=== PATIENT | female | born 1985 | race Caucasian/White ===

== ENCOUNTER 2017-10-20 17:30 | Emergency (ER) | payer MEDICAID ==
[2017-10-20] MEDS ORDERED: Ketorolac 60 MG/2 ML SDV IM ONE (18:17)
--- NOTE | 2017-10-20 18:17 | EDM.PDOC ---
ED HPI GENERAL MEDICAL PROBLEM - General Chief Complaint: ENT Problem Stated Complaint: MOUTH PAIN, POSSIBLE INFECTED TEETH Time Seen by Provider: 10/20/17 18:03 Source of Information: Reports: Patient, RN Notes Reviewed History Limitations: Reports: No Limitations - History of Present Illness INITIAL COMMENTS - FREE TEXT/NARRATIVE: 32-year-old female presents emergency department with the complaint of dental pain, she states she broke a tooth about 4 days ago pain has been increasing she has tenderness around her jaw she denies any fever she recently moved here from [place] but is a resident of [facility] - Related Data Allergies Allergy/AdvReac Type Severity Reaction Status Date / Time No Known Allergies Allergy Verified 10/20/17 18:02 Home Meds: Home Meds NK [No Known Home Meds] 10/20/17 [History] Past Medical History - Past Surgical History HEENT Surgical History: Reports: Oral Surgery Social & Family History - Tobacco Use Smoking Status *Q: Never Smoker ED ROS ENT - Review of Systems Review Of Systems: See Below Constitutional: Denies: Fever, Chills HEENT: Reports: Dental Pain Respiratory: Reports: No Symptoms ED EXAM, ENT - Physical Exam Exam: See Below Text/Narrative:: Mouth mucosa is moist and pink there is no erythema or exudate noted in soft palate tongue is midline uvula is midline molar #1 is broken she is tender to the touch Exam Limited By: No Limitations General Appearance: Alert, Mild Distress Head: Atraumatic, Normocephalic Neck: Normal Inspection, Supple, Non-Tender, Full Range of Motion Respiratory/Chest: No Respiratory Distress Course - Vital Signs Last Recorded V/S: Last Vital Signs Temp 98.9 F 10/20/17 18:06 Pulse 109 H 10/20/17 18:06 Resp 20 10/20/17 18:06 BP 152/106 H 10/20/17 18:06 Pulse Ox 98 10/20/17 18:06 Departure - Departure Time of Disposition: 18:17 Disposition: Home, Self-Care 01 Condition: Good Clinical Impression: Dental abscess, Pain, dental - Discharge Information Referrals: PCP,None [Primary Care Provider] - Additional Instructions: Take full course of antibiotics, use ibuprofen for baseline pain control, use hydrocodone for breakthrough pain, please report to the dental clinic October 22 at 8:15 in the morning - Assessment/Plan Plan: Assessment Acuity = acute Site and laterality = fractured tooth molar 1 Etiology = secondary to dental caries Manifestations = pain concern for development of dental abscess Location of injury = Home Lab values = none Plan Amoxicillin 500 mg by mouth 3 times a day 10 days, hydrocodone 5/325 one tab by mouth 3 times a day when necessary total #10 referral set up for dentistry on 10-22-17 at 8:15 in the morning This note was dictated using [email or web address] voice recognition software please call with any questions on syntax or grammar.
== END 2017-10-20 18:42 | disposition home or self-care (01) ==
LOC: JP.ED 17:30
DX: K04.7 Periapical abscess without sinus (principal); K03.81 Cracked tooth; K02.9 Dental caries, unspecified
CPT/HCPCS: 96372; 99283; J1885

== ENCOUNTER 2018-06-19 10:42 | Emergency (ER) | payer MEDICAID ==
--- NOTE | 2018-06-19 11:41 | EDM.PDOC ---
ED HPI GENERAL MEDICAL PROBLEM - General Chief Complaint: ENT Problem Stated Complaint: UPPER RT BROKEN TOOTH Time Seen by Provider: 06/19/18 11:25 Source of Information: Reports: Patient History Limitations: Reports: No Limitations - History of Present Illness INITIAL COMMENTS - FREE TEXT/NARRATIVE: 32-year-old with chronic dental caries, has increased pain on the right upper molar for the last 2 days since her tooth fractured. The dentist won't see her because of a past pill that she didn't pay, but she does have an appointment in [place] next week. No erythema or swelling, no fever. 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 Psychiatric History: Reports: ADHD, Anxiety - Past Surgical History HEENT Surgical History: Reports: Oral Surgery Social & Family History - Family History Family Medical History: Unobtainable - Tobacco Use Smoking Status *Q: Current Every Day Smoker Years of Tobacco use: 10 Packs/Tins Daily: 0.5 - Caffeine Use Caffeine Use: Reports: Coffee - Recreational Drug Use Recreational Drug Use: No ED ROS ENT - Review of Systems Review Of Systems: See Below Constitutional: Denies: Fever, Chills Respiratory: Denies: Shortness of Breath Cardiovascular: Denies: Chest Pain GI/Abdominal: Denies: Nausea, Vomiting Skin: Reports: No Symptoms ED EXAM, ENT - Physical Exam Exam: See Below Exam Limited By: No Limitations General Appearance: Alert, Anxious, Mild Distress Mouth/Throat: Other (She does have an area of missing tooth on the second molar of the right maxilla, also scattered dental caries elsewhere. No significant erythema or swelling.) Course - Vital Signs Last Recorded V/S: Last Vital Signs Temp 97.0 F 06/19/18 11:10 Pulse 113 H 06/19/18 11:10 Resp 20 06/19/18 11:10 BP 186/109 H 06/19/18 11:10 Pulse Ox 97 06/19/18 11:10 - Re-Assessments/Exams Free Text/Narrative Re-Assessment/Exam: 06/19/18 11:40 Patient was placed on penicillin VK 500 mg 4 times a day until seen by the dentist. She is to continue with ibuprofen and given 10 hydrocodone for extra pain control. She can return if worsening such as swelling or fever. Departure - Departure Time of Disposition: 11:48 Disposition: Home, Self-Care 01 Condition: Good Clinical Impression: Broken tooth injury Qualifiers: Encounter type: initial encounter Fracture type: closed Qualified Code(s): S02.5XXA - Fracture of tooth (traumatic), initial encounter for closed fracture - Discharge Information Instructions: Tooth Injuries Referrals: Janki Garzon PA-C [Primary Care Provider] - Forms: ED Department Discharge Care Plan Goals: Take antibiotic 4 times a day until you're seen by the dentist, continue with ibuprofen on a regular basis and add stronger pain medication if needed. Recheck with the dentist as scheduled, return sooner if worsening such as swelling, fever or redness.
== END 2018-06-19 11:48 | disposition home or self-care (01) ==
LOC: JP.ED 10:42
DX: K03.81 Cracked tooth (principal); F17.210 Nicotine dependence, cigarettes, uncomplicated; Z79.899 Other long term (current) drug therapy
CPT/HCPCS: 99283

== ENCOUNTER 2019-04-02 17:20 | Inpatient (IN) | payer MEDICAID ==
--- NOTE | 2019-04-02 18:09 | EDM.PDOC ---
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 Last period was March 10 and she gets her period every 4 weeks, this time is elderly. She had some cramping with her periods as baseline. Has some nausea nausea and vomited once yesterday. Denies any fever or cough. Denies any chest pain shortness breath. Denies any diarrhea or constipation. Denies any urinary symptom. 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: , 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 Constitutional: Reports: No Symptoms HEENT: Reports: No Symptoms Respiratory: Reports: No Symptoms Cardiovascular: Reports: No Symptoms Endocrine: Reports: No Symptoms ED EXAM, GI/ABD - Physical Exam Exam: See Below Exam Limited By: No Limitations General Appearance: Alert, WD/WN, No Apparent Distress Eyes: Bilateral: Normal Appearance, EOMI Ears: Normal External Exam, Normal Canal, Hearing Grossly Normal, Normal TMs Nose: Normal Inspection, Normal Mucosa, No Blood Throat/Mouth: Normal Inspection, Normal Lips, Normal Teeth, Normal Gums, Normal Oropharynx, Normal Voice, No Airway Compromise Head: Atraumatic, Normocephalic Neck: Normal Inspection, Supple, Non-Tender, Full Range of Motion Respiratory/Chest: No Respiratory Distress, Lungs Clear, Normal Breath Sounds, No Accessory Muscle Use, Chest Non-Tender Cardiovascular: Normal Peripheral Pulses, Regular Rate, Rhythm, No Edema, No Gallop, No JVD, No Murmur, No Rub GI/Abdominal Exam: Normal Bowel Sounds, Soft, No Organomegaly, No Distention, No Mass, Tender. No: Distended, Guarding, Rigid, Rebound, Hernia (Female) Exam: Normal External Exam, Normal Speculum Exam, Normal Bimanual Exam Extremities: Normal Inspection, Normal Range of Motion, Non-Tender, Normal Capillary Refill, No Pedal Edema Neurological: Alert, Oriented, CN II-XII Intact, Normal Cognition, Normal Gait, Normal Reflexes, No Motor/Sensory Deficits Psychiatric: Normal Affect, Normal Mood Skin Exam: Warm, Dry, Intact, Normal Color, No Rash Course - Vital Signs Last Recorded V/S: Last Vital Signs Temp 36.5 C 04/02/19 18:00 Pulse 126 H 04/02/19 18:00 Resp 16 04/02/19 18:00 BP 128/87 04/02/19 18:00 Pulse Ox 97 04/02/19 18:00 - Orders/Labs/Meds Orders: Active Orders 24 hr Category Date Time Status Iopamidol [Isovue-300 (61%)] Med 04/02/19 19:00 Active 150 ml IV . DIRECTED Potassium Chloride [Klor-Con M20] Med 04/02/19 20:57 Once 20 meq PO ONETIME ONE Sodium Chloride 0.9% [Normal Saline] 1,000 ml Med 04/02/19 20:15 Active IV ASDIRECTED Sodium Chloride 0.9% [Normal Saline] 80 ml Med 04/02/19 19:00 Active IV ASDIRECTED Sodium Chloride 0.9% [Saline Flush] Med 04/02/19 18:52 Active 10 ml FLUSH ASDIRECTED PRN cefTRIAXone [Rocephin] 1 gm Med 04/02/19 20:57 Ordered Sodium Chloride 0.9% [Normal Saline] 50 ml IV ONETIME Medication Orders Sodium Chloride (Normal Saline) 80 mls @ 3 mls/sec IV ASDIRECTED [facility] Last Admin: 04/02/19 19:07 Dose: 3 mls/sec Sodium Chloride (Normal Saline) 1,000 mls @ 125 mls/hr IV ASDIRECTED CATHRYN Last Admin: 04/02/19 20:15 Dose: 125 mls/hr Ceftriaxone Sodium 1 gm/ (Sodium Chloride) 50 mls @ 100 mls/hr IV ONETIME ONE Stop: 04/02/19 21:26 Iopamidol (Isovue-300 (61%)) 150 ml IV . DIRECTED [facility] Last Admin: 04/02/19 19:07 Dose: 150 ml Potassium Chloride (Klor-Con M20) 20 meq PO ONETIME ONE Stop: 04/02/19 20:58 Sodium Chloride (Saline Flush) 10 ml FLUSH ASDIRECTED PRN PRN Reason: Keep Vein Open Last Admin: 04/02/19 19:07 Dose: 10 ml Labs: Laboratory Tests 04/02/19 04/02/19 04/02/19 Range/Units 17:41 17:41 18:30 WBC 18.9 H (4.5-11.0) K/uL RBC 3.79 (3.30-5.50) M/uL Hgb 10.4 L (12.0-15.0) g/dL Hct 31.3 L (36.0-48.0) % MCV 83 (80-98) fL MCH 27 (27-31) pg MCHC 33 (32-36) % Plt Count 358 (150-400) K/uL Neut % (Auto) 77 H (36-66) % Lymph % (Auto) 13 L (24-44) % Hubbard % (Auto) 10 H (2-6) % Eos % (Auto) 0 L (2-4) % Baso % (Auto) 0 (0-1) % PT (9.5-12.0) sec INR (0.80-1.20) APTT (27.0-36.0) sec Sodium (140-148) mmol/L Potassium (3.6-5.2) mmol/L Chloride (100-108) mmol/L Carbon Dioxide (21-32) mmol/L Anion Gap (5.0-14.0) mmol/L BUN (7-18) mg/dL Creatinine (0.6-1.0) mg/dL Est Cr Clr Drug Dosing mL/min Estimated GFR (MDRD) (>60) Glucose (74-106) mg/dL Lactic Acid (0.4-2.0) mmol/L Calcium (8.5-10.1) mg/dL Total Bilirubin (0.2-1.0) mg/dL AST (15-37) U/L ALT (12-78) U/L Alkaline Phosphatase (46-116) U/L Total Protein (6.4-8.2) g/dL Albumin (3.4-5.0) g/dL Globulin (2.3-3.5) g/dL Albumin/Globulin Ratio (1.2-2.2) Lipase (73-393) U/L Urine Color Red A (YELLOW) Urine Appearance Cloudy A (CLEAR) Urine pH 6.0 (5.0-8.0) Ur Specific Delancey 1.020 (1.008-1.030) Urine Protein >=300 H (NEGATIVE) mg/dL Urine Glucose (UA) Negative (NEGATIVE) mg/dL Urine Ketones Trace H (NEGATIVE) mg/dL Urine Occult Blood Large H (NEGATIVE) Urine Nitrite Positive H (NEGATIVE) Urine Bilirubin Small H (NEGATIVE) Urine Urobilinogen 1.0 (0.2-1.0) EU/dL Ur Leukocyte Esterase Large H (NEGATIVE) Urine RBC Packed H (0-5) Urine WBC 20-30 H (0-5) Ur Epithelial Cells Few Amorphous Sediment Few Urine Bacteria Many Urine Mucus Few Urine HCG, Qual Negative 04/02/19 04/02/19 04/02/19 Range/Units 18:30 18:30 18:30 WBC (4.5-11.0) K/uL RBC (3.30-5.50) M/uL Hgb (12.0-15.0) g/dL Hct (36.0-48.0) % MCV (80-98) fL MCH (27-31) pg MCHC (32-36) % Plt Count (150-400) K/uL Neut % (Auto) (36-66) % Lymph % (Auto) (24-44) % Hubbard % (Auto) (2-6) % Eos % (Auto) (2-4) % Baso % (Auto) (0-1) % PT 12.7 H (9.5-12.0) sec INR 1.19 (0.80-1.20) APTT 35.1 (27.0-36.0) sec Sodium 137 L (140-148) mmol/L Potassium 3.1 L (3.6-5.2) mmol/L Chloride 105 (100-108) mmol/L Carbon Dioxide 16 L (21-32) mmol/L Anion Gap 19.1 H (5.0-14.0) mmol/L BUN 28 H (7-18) mg/dL Creatinine 1.8 H (0.6-1.0) mg/dL Est Cr Clr Drug Dosing 40.38 mL/min Estimated GFR (MDRD) 33 L (>60) Glucose 117 H (74-106) mg/dL Lactic Acid 1.6 (0.4-2.0) mmol/L Calcium 10.1 (8.5-10.1) mg/dL Total Bilirubin 0.7 (0.2-1.0) mg/dL AST 73 H (15-37) U/L ALT 171 H (12-78) U/L Alkaline Phosphatase 120 H (46-116) U/L Total Protein 7.8 (6.4-8.2) g/dL Albumin 2.9 L (3.4-5.0) g/dL Globulin 4.9 H (2.3-3.5) g/dL Albumin/Globulin Ratio 0.6 L (1.2-2.2) Lipase 332 (73-393) U/L Urine Color (YELLOW) Urine Appearance (CLEAR) Urine pH (5.0-8.0) Ur Specific Delancey (1.008-1.030) Urine Protein (NEGATIVE) mg/dL Urine Glucose (UA) (NEGATIVE) mg/dL Urine Ketones (NEGATIVE) mg/dL Urine Occult Blood (NEGATIVE) Urine Nitrite (NEGATIVE) Urine Bilirubin (NEGATIVE) Urine Urobilinogen (0.2-1.0) EU/dL Ur Leukocyte Esterase (NEGATIVE) Urine RBC (0-5) Urine WBC (0-5) Ur Epithelial Cells Amorphous Sediment Urine Bacteria Urine Mucus Urine HCG, Qual Meds: Medications Generic Name Dose Route Start Last Admin Trade Name Frestanislaw PRN Reason Stop Dose Admin Sodium Chloride 80 mls @ 3 mls/sec 04/02/19 19:00 04/02/19 19:07 Normal Saline IV 3 mls/sec ASDIRECTED CATHRYN Administration Sodium Chloride 1,000 mls @ 125 mls/hr 04/02/19 20:15 04/02/19 20:15 Normal Saline IV 125 mls/hr ASDIRECTED CATHRYN Administration Ceftriaxone Sodium 1 gm/ 50 mls @ 100 mls/hr 04/02/19 20:57 Sodium Chloride IV 04/02/19 21:26 ONETIME ONE Iopamidol 150 ml 04/02/19 19:00 04/02/19 19:07 Isovue-300 (61%) IV 150 ml . DIRECTED CATHRYN Administration Potassium Chloride 20 meq 04/02/19 20:57 Klor-Con M20 PO 04/02/19 20:58 ONETIME ONE Sodium Chloride 10 ml 04/02/19 18:52 04/02/19 19:07 Saline Flush FLUSH 10 ml ASDIRECTED PRN Administration Keep Vein Open Discontinued Medications Generic Name Dose Route Start Last Admin Trade Name Teofilo PRN Reason Stop Dose Admin Sodium Chloride 1,000 mls @ 999 mls/hr 04/02/19 18:27 04/02/19 18:48 Normal Saline IV 04/02/19 19:27 999 mls/hr .BOLUS STA Administration Morphine Sulfate 4 mg 04/02/19 18:27 04/02/19 18:44 Morphine IVPUSH 04/02/19 18:28 4 mg ONETIME ONE Administration Morphine Sulfate 4 mg 04/02/19 20:55 Morphine IVPUSH 04/02/19 20:56 ONETIME ONE Tamsulosin HCl 0.4 mg 04/02/19 20:56 Flomax PO 04/02/19 20:57 ONETIME ONE - Radiology Interpretation Free Text/Narrative:: Patient was seen and examined shortly after arrival. Stable. Given 1 L normal saline bolus, 4 mg IV morphine. Lab and imaging reviewed with the patient. 4 mm distal right ureteric stone, obstructive uropathy. Concern about UTI/ pyelonephritis. However she is afebrile. No sign of severe sepsis or septic shock at this point. Given 2 L normal saline bolus, 4 mg IV morphine 2, 0.4 mg Flomax, 1 g IV Rocephin. Patient is also have acute kidney injury, low hemoglobin, metabolic acidosis and anion gap. Hypokalemia. Given 20 mEq potassium chloride. I did consulted with Dr. 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 He accepted admission for further management. Patient agrees with the plan. Stable for admission. Departure - Departure Time of Disposition: 21:01 Disposition: Admitted As Inpatient 67 Condition: Good Clinical Impression: Acute pyelonephritis, Acute kidney injury, Hypokalemia, Ureteric stone, Hematuria, Metabolic acidosis - Discharge Information *PRESCRIPTION DRUG MONITORING PROGRAM REVIEWED*: Not Applicable *COPY OF PRESCRIPTION DRUG MONITORING REPORT IN PATIENT LESIA: Not Applicable Referrals: Janki Garzon PA-C [Primary Care Provider] - Forms: ED Department Discharge - My Orders Last 24 Hours: My Active Orders 04/02/19 18:52 Sodium Chloride 0.9% [Saline Flush] 10 ml FLUSH ASDIRECTED PRN 04/02/19 19:00 Iopamidol [Isovue-300 (61%)] 150 ml IV . DIRECTED Sodium Chloride 0.9% [Normal Saline] 80 ml IV ASDIRECTED 04/02/19 20:15 Sodium Chloride 0.9% [Normal Saline] 1,000 ml IV ASDIRECTED 04/02/19 20:57 Potassium Chloride [Klor-Con M20] 20 meq PO ONETIME ONE cefTRIAXone [Rocephin] 1 gm Sodium Chloride 0.9% [Normal Saline] 50 ml IV ONETIME - Assessment/Plan Last 24 Hours: My Active Orders 04/02/19 18:52 Sodium Chloride 0.9% [Saline Flush] 10 ml FLUSH ASDIRECTED PRN 04/02/19 19:00 Iopamidol [Isovue-300 (61%)] 150 ml IV . DIRECTED Sodium Chloride 0.9% [Normal Saline] 80 ml IV ASDIRECTED 04/02/19 20:15 Sodium Chloride 0.9% [Normal Saline] 1,000 ml IV ASDIRECTED 04/02/19 20:57 Potassium Chloride [Klor-Con M20] 20 meq PO ONETIME ONE cefTRIAXone [Rocephin] 1 gm Sodium Chloride 0.9% [Normal Saline] 50 ml IV ONETIME Plan: Admission to Dr. Reveles
[2019-04-02] MEDS ORDERED: Sodium Chloride 0.9% 1,000 ML IV STA (18:27)
[2019-04-02] MEDS ORDERED: Morphine 4 MG/ML Syringe IVPUSH ONE ×2 (18:27→20:55)
[2019-04-02] MEDS ORDERED: Sodium Chloride 0.9% 10 ML Syringe FLUSH PRN (18:52)
[2019-04-02] MEDS ORDERED: Iopamidol 612 MG/ML 150 ML Bottle IV SCH (19:00)
[2019-04-02] MEDS ORDERED: Sodium Chloride 0.9% 80 ML IV SCH (19:00)
--- NOTE | 2019-04-02 19:37 | CRLCT ---
INDICATION: Abdominal pain, vaginal bleeding TECHNIQUE: CT abdomen and pelvis acquired with 150 cc Isovue 300 IV contrast. COMPARISON: None FINDINGS: Lower chest: Unremarkable. Liver: The liver measures 21 cm in length. Spleen: Unremarkable. Pancreas: Unremarkable. Gallbladder and bile ducts: Unremarkable. Adrenal glands: Unremarkable. Kidneys: Moderate right hydronephrosis and hydroureter secondary to a 4 mm stone in the distal right ureter. The stone is just proximal to the ureterovesical junction. There is a mildly striated appearance of the upper pole of the right kidney and enhancement of the right urothelium. There are two punctate stones in the lower pole the right kidney and a single punctate stone in the lower pole the left kidney. There are few subcentimeter hypodensities on the right kidney that are too small to accurately characterize. There is a simple cyst on the left kidney. GI tract: Unremarkable. Vascular structures: Unremarkable. Lymph nodes: Unremarkable. Miscellaneous: Unremarkable. No free air or significant free fluid. Pelvic Organs: 1.3 cm cyst on the left ovary, likely physiologic. Bones: Unremarkable for age. IMPRESSION: Moderate right hydronephrosis and hydroureter secondary to a 4 mm stone in the distal right ureter. There is also a striated appearance of the superior pole the right kidney and enhancement of the right urothelium concerning for superimposed right pyelonephritis. There are punctate stones in both kidneys. Hepatomegaly. Please note that all CT scans at this facility use dose modulation, iterative reconstruction, and/or weight-based dosing when appropriate to reduce radiation dose to as low as reasonably achievable. Dictated by Sandra Mg MD @ Apr 02 2019 7:26PM Signed by Dr. Sandra Mg @ Apr 02 2019 7:36PM
[2019-04-02] MEDS ORDERED: Sodium Chloride 0.9% 1,000 ML IV SCH (20:15)
[2019-04-02] MEDS ORDERED: Tamsulosin 0.4 MG Cap.ER PO ONE (20:56)
[2019-04-02] MEDS ORDERED: Potassium Chloride 20 MEQ Tab.ER PO ONE ×2 (20:57→22:40)
[2019-04-02] MEDS ORDERED: cefTRIAXone 1 GM in Sodium Chloride 0.9% 50 ML IV ONE (20:57)
--- NOTE | 2019-04-02 22:10 | PCM.HP.2 ---
H&P History of Present Illness - General Date of Service: 04/02/19 Admit Problem/Dx: Admission Diagnosis/Problem Admission Diagnosis/Problem Pyelonephritis Source of Information: Patient, Family, Provider History Limitations: Reports: No Limitations - History of Present Illness Initial Comments - Free Text/Narative: CC: I've been bleeding HPI: Jackie presents to the emergency room today with 5 days of what she thought was vaginal bleeding. She reports passing blood from the vaginal area, sometimes with urination and sometimes she thought without trying to pass urine. The blood has continued so she thought she should be checked out. She also describes moderately severe suprapubic pain, especially with trying to pass urine. She also endorses significant dysuria. Pain has been steadily getting worse throughout the last 5 days. Pain does not radiate. She has been using ibuprofen without much relief. Pain initially started in her back and then migrated to the suprapubic area and has remained there. She's never had pain like this in the past. She has had some subjective fevers and chills but no rigors or measured fevers. She's had some nausea and has vomited anytime she tried to eat anything in the past few days. Appetite and oral intake have been very poor. No change in bowel habits. No sick contacts. No shortness of breath or skin rashes. No history of kidney stones. In the emergency room she was noted to have an elevated white blood cell count of 18,000, mild hypokalemia, acute kidney injury with a creatinine 1.8 and a urine strongly suggestive of infection as well as hematuria. CT scan of the abdomen showed a 4 mm stone in the distal ureter and probable right pyelonephritis.. She'll be admitted for management of pyelonephritis complicating a ureteral stone. Lower Abdomen Pain Score (Numeric/FACES): 10 - Related Data Allergies/Adverse Reactions: Allergies Allergy/AdvReac Type Severity Reaction Status Date / Time No Known Allergies Allergy Verified 04/02/19 17:54 Home Medications: Home Meds Amphetamine/Dextroamphetamine [Adderall XR] 15 mg PO BID 03/04/18 [History] Ethinyl Estradiol/Drospirenone [Loryna 3 mg-0.02 mg Tablet] 1 each PO DAILY 02/11 [History] Gabapentin [Neurontin] 300 mg PO TID 03/04/18 [History] Ibuprofen [Motrin] 800 mg PO Q8H PRN 04/02/19 [History] Past Medical History HEENT History: Reports: Other (See Below) Other HEENT History: Dental Carries/Broken teeth SET ILLUSTRATOR History: Reports: , Spontaneous Psychiatric History: Reports: ADHD, Anxiety - Past Surgical History Head Surgeries/Procedures: Reports: None HEENT Surgical History: Reports: Oral Surgery Dermatological Surgical History: Reports: None Social & Family History - Family History Family Medical History: Unobtainable - Tobacco Use Smoking Status *Q: Current Every Day Smoker Years of Tobacco use: 15 Packs/Tins Daily: 0.5 - Caffeine Use Caffeine Use: Reports: Coffee, Soda - Alcohol Use Alcohol Use History: No - Recreational Drug Use Recreational Drug Use: No H&P Review of Systems - Review of Systems: Review Of Systems: See Below Free Text/Narrative: A complete 12 point review of systems was obtained. Pertinent positives and negatives are noted in the history of present illness. All other systems were reviewed and were negative except as noted. Exam - Exam Exam: See Below - Vital Signs Vital Signs: Last Vital Signs Temp 36.5 C 04/02/19 18:00 Pulse 126 H 04/02/19 18:00 Resp 16 04/02/19 18:00 BP 128/87 04/02/19 18:00 Pulse Ox 97 04/02/19 18:00 Weight: 119 kg - Exam Quality Assessment: No: Supplemental Oxygen General: Alert, Oriented, Cooperative. No: Mild Distress HEENT: Conjunctiva Clear. No: Mucosa Moist & [place] (dry), Scleral Icterus Neck: Supple, Trachea Midline. No: Lymphadenopathy Lungs: Clear to Auscultation, Normal Respiratory Effort Cardiovascular: Regular Rhythm, Tachycardia. No: Systolic Murmur GI/Abdominal Exam: Normal Bowel Sounds, Soft, No Distention, Tender (mild suprapubic). No: Guarding Back Exam: Normal Inspection, Full Range of Motion Extremities: No Pedal Edema. No: Increased Warmth Peripheral Pulses: 2+: Dorsalis Pedis (L), Dorsalis Pedis (R) Skin: Warm, Dry Neuro Extensive - Mental Status: Alert, Oriented x3, Nl Response to Commands Neuro Extensive - Motor, Sensory, Reflexes: No: Dysarthria, Abnormal Motor, Tremor Psychiatric: Alert, Normal Affect - Patient Data Lab Results Last 24 hrs: Laboratory Results - last 24 hr 04/02/19 04/02/19 04/02/19 Range/Units 17:41 17:41 18:30 WBC 18.9 H (4.5-11.0) K/uL RBC 3.79 (3.30-5.50) M/uL Hgb 10.4 L (12.0-15.0) g/dL Hct 31.3 L (36.0-48.0) % MCV 83 (80-98) fL MCH 27 (27-31) pg MCHC 33 (32-36) % Plt Count 358 (150-400) K/uL Neut % (Auto) 77 H (36-66) % Lymph % (Auto) 13 L (24-44) % [place] % (Auto) 10 H (2-6) % Eos % (Auto) 0 L (2-4) % Baso % (Auto) 0 (0-1) % PT (9.5-12.0) sec INR (0.80-1.20) APTT (27.0-36.0) sec Sodium (140-148) mmol/L Potassium (3.6-5.2) mmol/L Chloride (100-108) mmol/L Carbon Dioxide (21-32) mmol/L Anion Gap (5.0-14.0) mmol/L BUN (7-18) mg/dL Creatinine (0.6-1.0) mg/dL Est Cr Clr Drug Dosing mL/min Estimated GFR (MDRD) (>60) Glucose (74-106) mg/dL Lactic Acid (0.4-2.0) mmol/L Calcium (8.5-10.1) mg/dL Total Bilirubin (0.2-1.0) mg/dL AST (15-37) U/L ALT (12-78) U/L Alkaline Phosphatase (46-116) U/L Total Protein (6.4-8.2) g/dL Albumin (3.4-5.0) g/dL Globulin (2.3-3.5) g/dL Albumin/Globulin Ratio (1.2-2.2) Lipase (73-393) U/L Urine Color Red A (YELLOW) Urine Appearance Cloudy A (CLEAR) Urine pH 6.0 (5.0-8.0) Ur Specific [place] 1.020 (1.008-1.030) Urine Protein >=300 H (NEGATIVE) mg/dL Urine Glucose (UA) Negative (NEGATIVE) mg/dL Urine Ketones Trace H (NEGATIVE) mg/dL Urine Occult Blood Large H (NEGATIVE) Urine Nitrite Positive H (NEGATIVE) Urine Bilirubin Small H (NEGATIVE) Urine Urobilinogen 1.0 (0.2-1.0) EU/dL Ur Leukocyte Esterase Large H (NEGATIVE) Urine RBC Packed H (0-5) Urine WBC 20-30 H (0-5) Ur Epithelial Cells Few Amorphous Sediment Few Urine Bacteria Many Urine Mucus Few Urine HCG, Qual Negative 04/02/19 04/02/19 04/02/19 Range/Units 18:30 18:30 18:30 WBC (4.5-11.0) K/uL RBC (3.30-5.50) M/uL Hgb (12.0-15.0) g/dL Hct (36.0-48.0) % MCV (80-98) fL MCH (27-31) pg MCHC (32-36) % Plt Count (150-400) K/uL Neut % (Auto) (36-66) % Lymph % (Auto) (24-44) % [place] % (Auto) (2-6) % Eos % (Auto) (2-4) % Baso % (Auto) (0-1) % PT 12.7 H (9.5-12.0) sec INR 1.19 (0.80-1.20) APTT 35.1 (27.0-36.0) sec Sodium 137 L (140-148) mmol/L Potassium 3.1 L (3.6-5.2) mmol/L Chloride 105 (100-108) mmol/L Carbon Dioxide 16 L (21-32) mmol/L Anion Gap 19.1 H (5.0-14.0) mmol/L BUN 28 H (7-18) mg/dL Creatinine 1.8 H (0.6-1.0) mg/dL Est Cr Clr Drug Dosing 40.38 mL/min Estimated GFR (MDRD) 33 L (>60) Glucose 117 H (74-106) mg/dL Lactic Acid 1.6 (0.4-2.0) mmol/L Calcium 10.1 (8.5-10.1) mg/dL Total Bilirubin 0.7 (0.2-1.0) mg/dL AST 73 H (15-37) U/L ALT 171 H (12-78) U/L Alkaline Phosphatase 120 H (46-116) U/L Total Protein 7.8 (6.4-8.2) g/dL Albumin 2.9 L (3.4-5.0) g/dL Globulin 4.9 H (2.3-3.5) g/dL Albumin/Globulin Ratio 0.6 L (1.2-2.2) Lipase 332 (73-393) U/L Urine Color (YELLOW) Urine Appearance (CLEAR) Urine pH (5.0-8.0) Ur Specific [place] (1.008-1.030) Urine Protein (NEGATIVE) mg/dL Urine Glucose (UA) (NEGATIVE) mg/dL Urine Ketones (NEGATIVE) mg/dL Urine Occult Blood (NEGATIVE) Urine Nitrite (NEGATIVE) Urine Bilirubin (NEGATIVE) Urine Urobilinogen (0.2-1.0) EU/dL Ur Leukocyte Esterase (NEGATIVE) Urine RBC (0-5) Urine WBC (0-5) Ur Epithelial Cells Amorphous Sediment Urine Bacteria Urine Mucus Urine HCG, Qual Result Diagrams: 04/02/19 18:30 04/02/19 18:30 Imaging Impressions Last 24 hrs: CT scan of the abdomen and pelvis - images personally reviewed - there is a 4 mm stone in the distal right ureter with hydroureter and hydronephrosis on the right. Liver is enlarged. *Q Meaningful Use (ADM) - VTE *Q VTE Pharmacological Contraindications *Q: Risk of Bleeding - VTE Risk Assess *Q Each Risk Factor Represents 1 Point: Obesity ( BMI > 25 kg/m2) Total Score 1 Point Risk Factors: 1 Each Risk Factor Represents 2 Points: None Total Score 2 Point Risk Factors: 0 Each Risk Factor Represents 3 Points: None Total Score 3 Point Risk Factors: 0 Each Risk Factor Represents 5 Points: None Total Score 5 Point Risk Factors: 0 Venous Thromboembolism Risk Factor Score *Q: 1 - Problem List (1) Acute pyelonephritis SNOMED Code(s): 93036384 ICD Code: N10 - ACUTE PYELONEPHRITIS Status: Acute Current Visit: Yes (2) Ureteric stone SNOMED Code(s): 28565832 ICD Code: N20.1 - CALCULUS OF URETER Status: Acute Current Visit: Yes (3) Acute kidney injury SNOMED Code(s): 29327553, 20014322 ICD Code: N17.9 - ACUTE KIDNEY FAILURE, UNSPECIFIED Status: Acute Current Visit: Yes (4) Hypokalemia SNOMED Code(s): 33408291 ICD Code: E87.6 - HYPOKALEMIA Status: Acute Current Visit: Yes (5) Tobacco dependence syndrome SNOMED Code(s): 40122475 ICD Code: F17.200 - NICOTINE DEPENDENCE, UNSPECIFIED, UNCOMPLICATED Status : Chronic Current Visit: Yes Problem List Initiated/Reviewed/Updated: Yes Orders Last 24hrs: Active Orders 24 hr Category Date Time Status Patient Status Manage Transfer [TRANSFER] Routine ADT 04/02/19 22:02 Ordered CULTURE URINE [RM] Routine Lab 04/02/19 19:30 Received Iopamidol [Isovue-300 (61%)] Med 04/02/19 19:00 Active 150 ml IV . DIRECTED Sodium Chloride 0.9% [Normal Saline] 1,000 ml Med 04/02/19 20:15 Active IV ASDIRECTED Sodium Chloride 0.9% [Normal Saline] 80 ml Med 04/02/19 19:00 Active IV ASDIRECTED Sodium Chloride 0.9% [Saline Flush] Med 04/02/19 18:52 Active 10 ml FLUSH ASDIRECTED PRN Resuscitation Status Routine Resus Stat 04/02/19 22:03 Ordered Medication Orders Sodium Chloride (Normal Saline) 80 mls @ 3 mls/sec IV ASDIRECTED [facility] Last Admin: 04/02/19 19:07 Dose: 3 mls/sec Sodium Chloride (Normal Saline) 1,000 mls @ 125 mls/hr IV ASDIRECTED [facility] Last Admin: 04/02/19 20:15 Dose: 125 mls/hr Iopamidol (Isovue-300 (61%)) 150 ml IV . DIRECTED [facility] Last Admin: 04/02/19 19:07 Dose: 150 ml Sodium Chloride (Saline Flush) 10 ml FLUSH ASDIRECTED PRN PRN Reason: Keep Vein Open Last Admin: 04/02/19 19:07 Dose: 10 ml Assessment/Plan Comment:: ASSESSMENT AND PLAN - Right-sided pyelonephritis - this is a complication of a right ureteral stone and there is both hydronephrosis and hydroureter. Patient is not currently febrile but she is tachycardic. Lactic acid is normal. -Aggressive IV fluid hydration -Pain control -Antibiotic coverage with ceftriaxone -Urine culture 4 mm right distal ureteral stone - Complicated by hydroureter and hydronephrosis. Planning hydrate patient and treat the infection overnight. She may need urology consultation in the morning of kidney function does not get better or if she becomes septic. -Management as above Acute kidney injury - creatinine of 1.8 likely more than double her baseline. -Fluids as above with repeat labs in the morning Hypokalemia - Will replace this evening and recheck in the morning Tobacco dependence - patient is interested in a nicotine patch. Maintenance issues - - DVT prophylaxis - mechanical with hematuria - GI prophylaxis - not indicated - Nutrition - regular - Zuniga catheter - not indicated CODE STATUS - full code Admission justification - This patient will be admitted for inpatient services and is medically appropriate meeting medical necessity for inpatient admission as outlined in my documentation. I reasonably expect the patient will require inpatient services that span a period time over 2 midnights. I reasonably expect this patient to be discharged or transferred within 96 hours after admission to the [facility]. Disposition - I would anticipate discharge home after the hospital stay, she requires transfer to a higher level of care Primary care physician - Janki Reveles M.D. - Mortality Measure Prognosis:: Good
[2019-04-02] MEDS ORDERED: LORazepam 2 MG/ML SDV IVPUSH PRN (22:40)
[2019-04-02] MEDS ORDERED: Magnesium Hydroxide 400 MG/5 ML Susp 30 ML Cup PO PRN (22:40)
[2019-04-02] MEDS: oxyCODONE 5 MG Tab PO PRN (23:08)
[2019-04-02] MEDS: Sodium Chloride 0.9% 1,000 ML IV SCH (23:43)
[2019-04-03] MEDS: Ondansetron 4 MG Tab.DIS PO PRN ×2 (02:15→08:27)
[2019-04-03] MEDS: oxyCODONE 5 MG Tab PO PRN ×4 (03:19→18:26)
[2019-04-03] MEDS: Morphine 4 MG/ML Syringe IVPUSH PRN ×5 (03:24→19:23)
[2019-04-03] MEDS ORDERED: Potassium Chloride 20 MEQ Tab.ER PO ONE ×2 (05:46→16:30)
[2019-04-03] MEDS: Sodium Chloride 0.9% 1,000 ML IV SCH ×2 (08:05→16:33)
[2019-04-03] MEDS: DROSPIRENONE PO SCH (08:07)
[2019-04-03] MEDS: ETHINYL ESTRADIOL PO SCH (08:07)
[2019-04-03] MEDS ORDERED: AMPHETAMINE PO SCH (09:00)
[2019-04-03] MEDS ORDERED: cefTRIAXone 1 GM in Sodium Chloride 0.9% 50 ML IV ONE (09:00)
[2019-04-03] MEDS ORDERED: DEXTROAMPHETAMINE PO SCH (09:00)
[2019-04-03] MEDS: Pantoprazole 40 MG Tab.CR PO SCH (09:28)
[2019-04-03] MEDS: Nicotine 14 MG/24 Hr Patch TRDERM PRN (10:40)
[2019-04-03] MEDS: Tamsulosin 0.4 MG Cap.ER PO SCH (10:43)
[2019-04-03] MEDS: Lactobacillus Rhamnosus GG (Probiotic) Cap PO SCH ×2 (10:43→21:48)
[2019-04-03] MEDS: Gabapentin 300 MG Cap PO SCH ×3 (10:44→21:48)
[2019-04-03] MEDS: Amphetamine/Dextroamphetamine Salts 10 MG Tab PO SCH ×2 (10:49→13:33)
--- NOTE | 2019-04-03 11:32 | PCM.PN ---
- General Info Date of Service: 04/03/19 Subjective Update: There were no acute events overnight. Pain was better controlled this morning but as the morning progressed she developed a more intense pain with ongoing hematuria. Pain progressed to the point that it was severe. She had associated nausea and vomiting. The pain did relent after a period of time. She is now essentially pain-free. Nausea and vomiting have resolved. No fevers. Kidney function improving. White blood cell count trending down. Functional Status: Reports: Pain Controlled. Denies: Tolerating Diet - Review of Systems General: Denies: Fever Gastrointestinal: Reports: Abdominal Pain Genitourinary: Reports: Dysuria Musculoskeletal: Reports: Back Pain - Patient Data Vitals - Most Recent: Last Vital Signs Temp 35.4 C 04/03/19 08:30 Pulse 101 H 04/03/19 08:30 Resp 24 H 04/03/19 08:30 BP 105/68 04/03/19 08:30 Pulse Ox 98 04/03/19 08:30 Weight - Most Recent: 119 kg I&O - Last 24 Hours: Intake & Output 04/02/19 04/03/19 04/03/19 22:59 06:59 14:59 Intake Total 1555 300 Output Total 925 525 Balance 630 -225 Lab Results Last 24 Hours: Laboratory Results - last 24 hr 04/02/19 04/02/19 04/02/19 Range/Units 17:41 17:41 18:30 WBC 18.9 H (4.5-11.0) K/uL RBC 3.79 (3.30-5.50) M/uL Hgb 10.4 L (12.0-15.0) g/dL Hct 31.3 L (36.0-48.0) % MCV 83 (80-98) fL MCH 27 (27-31) pg MCHC 33 (32-36) % Plt Count 358 (150-400) K/uL Neut % (Auto) 77 H (36-66) % Lymph % (Auto) 13 L (24-44) % [place] % (Auto) 10 H (2-6) % Eos % (Auto) 0 L (2-4) % Baso % (Auto) 0 (0-1) % PT (9.5-12.0) sec INR (0.80-1.20) APTT (27.0-36.0) sec Sodium (140-148) mmol/L Potassium (3.6-5.2) mmol/L Chloride (100-108) mmol/L Carbon Dioxide (21-32) mmol/L Anion Gap (5.0-14.0) mmol/L BUN (7-18) mg/dL Creatinine (0.6-1.0) mg/dL Est Cr Clr Drug Dosing mL/min Estimated GFR (MDRD) (>60) Glucose (74-106) mg/dL Lactic Acid (0.4-2.0) mmol/L Calcium (8.5-10.1) mg/dL Total Bilirubin (0.2-1.0) mg/dL AST (15-37) U/L ALT (12-78) U/L Alkaline Phosphatase (46-116) U/L Total Protein (6.4-8.2) g/dL Albumin (3.4-5.0) g/dL Globulin (2.3-3.5) g/dL Albumin/Globulin Ratio (1.2-2.2) Lipase (73-393) U/L Urine Color Red A (YELLOW) Urine Appearance Cloudy A (CLEAR) Urine pH 6.0 (5.0-8.0) Ur Specific [place] 1.020 (1.008-1.030) Urine Protein >=300 H (NEGATIVE) mg/dL Urine Glucose (UA) Negative (NEGATIVE) mg/dL Urine Ketones Trace H (NEGATIVE) mg/dL Urine Occult Blood Large H (NEGATIVE) Urine Nitrite Positive H (NEGATIVE) Urine Bilirubin Small H (NEGATIVE) Urine Urobilinogen 1.0 (0.2-1.0) EU/dL Ur Leukocyte Esterase Large H (NEGATIVE) Urine RBC Packed H (0-5) Urine WBC 20-30 H (0-5) Ur Epithelial Cells Few Amorphous Sediment Few Urine Bacteria Many Urine Mucus Few Urine HCG, Qual Negative 04/02/19 04/02/19 04/02/19 Range/Units 18:30 18:30 18:30 WBC (4.5-11.0) K/uL RBC (3.30-5.50) M/uL Hgb (12.0-15.0) g/dL Hct (36.0-48.0) % MCV (80-98) fL MCH (27-31) pg MCHC (32-36) % Plt Count (150-400) K/uL Neut % (Auto) (36-66) % Lymph % (Auto) (24-44) % [place] % (Auto) (2-6) % Eos % (Auto) (2-4) % Baso % (Auto) (0-1) % PT 12.7 H (9.5-12.0) sec INR 1.19 (0.80-1.20) APTT 35.1 (27.0-36.0) sec Sodium 137 L (140-148) mmol/L Potassium 3.1 L (3.6-5.2) mmol/L Chloride 105 (100-108) mmol/L Carbon Dioxide 16 L (21-32) mmol/L Anion Gap 19.1 H (5.0-14.0) mmol/L BUN 28 H (7-18) mg/dL Creatinine 1.8 H (0.6-1.0) mg/dL Est Cr Clr Drug Dosing 40.38 mL/min Estimated GFR (MDRD) 33 L (>60) Glucose 117 H (74-106) mg/dL Lactic Acid 1.6 (0.4-2.0) mmol/L Calcium 10.1 (8.5-10.1) mg/dL Total Bilirubin 0.7 (0.2-1.0) mg/dL AST 73 H (15-37) U/L ALT 171 H (12-78) U/L Alkaline Phosphatase 120 H (46-116) U/L Total Protein 7.8 (6.4-8.2) g/dL Albumin 2.9 L (3.4-5.0) g/dL Globulin 4.9 H (2.3-3.5) g/dL Albumin/Globulin Ratio 0.6 L (1.2-2.2) Lipase 332 (73-393) U/L Urine Color (YELLOW) Urine Appearance (CLEAR) Urine pH (5.0-8.0) Ur Specific [place] (1.008-1.030) Urine Protein (NEGATIVE) mg/dL Urine Glucose (UA) (NEGATIVE) mg/dL Urine Ketones (NEGATIVE) mg/dL Urine Occult Blood (NEGATIVE) Urine Nitrite (NEGATIVE) Urine Bilirubin (NEGATIVE) Urine Urobilinogen (0.2-1.0) EU/dL Ur Leukocyte Esterase (NEGATIVE) Urine RBC (0-5) Urine WBC (0-5) Ur Epithelial Cells Amorphous Sediment Urine Bacteria Urine Mucus Urine HCG, Qual 04/03/19 04/03/19 Range/Units 04:48 04:48 WBC 14.0 H (4.5-11.0) K/uL RBC 3.32 (3.30-5.50) M/uL Hgb 9.2 L (12.0-15.0) g/dL Hct 27.4 L (36.0-48.0) % MCV 83 (80-98) fL MCH 28 (27-31) pg MCHC 34 (32-36) % Plt Count 333 (150-400) K/uL Neut % (Auto) (36-66) % Lymph % (Auto) (24-44) % [place] % (Auto) (2-6) % Eos % (Auto) (2-4) % Baso % (Auto) (0-1) % PT (9.5-12.0) sec INR (0.80-1.20) APTT (27.0-36.0) sec Sodium 134 L (140-148) mmol/L Potassium 2.9 L* (3.6-5.2) mmol/L Chloride 104 (100-108) mmol/L Carbon Dioxide 13 L (21-32) mmol/L Anion Gap 19.9 H (5.0-14.0) mmol/L BUN 25 H (7-18) mg/dL Creatinine 1.3 H (0.6-1.0) mg/dL Est Cr Clr Drug Dosing 55.90 mL/min Estimated GFR (MDRD) 47 L (>60) Glucose 114 H (74-106) mg/dL Lactic Acid (0.4-2.0) mmol/L Calcium 8.7 (8.5-10.1) mg/dL Total Bilirubin 0.7 (0.2-1.0) mg/dL AST 48 H (15-37) U/L ALT 123 H (12-78) U/L Alkaline Phosphatase 102 (46-116) U/L Total Protein 6.7 (6.4-8.2) g/dL Albumin 2.6 L (3.4-5.0) g/dL Globulin 4.1 H (2.3-3.5) g/dL Albumin/Globulin Ratio 0.6 L (1.2-2.2) Lipase (73-393) U/L Urine Color (YELLOW) Urine Appearance (CLEAR) Urine pH (5.0-8.0) Ur Specific [place] (1.008-1.030) Urine Protein (NEGATIVE) mg/dL Urine Glucose (UA) (NEGATIVE) mg/dL Urine Ketones (NEGATIVE) mg/dL Urine Occult Blood (NEGATIVE) Urine Nitrite (NEGATIVE) Urine Bilirubin (NEGATIVE) Urine Urobilinogen (0.2-1.0) EU/dL Ur Leukocyte Esterase (NEGATIVE) Urine RBC (0-5) Urine WBC (0-5) Ur Epithelial Cells Amorphous Sediment Urine Bacteria Urine Mucus Urine HCG, Qual Med Orders - Current: Current Medications Acetaminophen (Tylenol) 650 mg PO Q4H PRN PRN Reason: Pain (Mild 1-3)/fever Amphetamine/Dextroamphetamine (Adderall) 15 mg PO BID@0900,1300 [facility] Last Admin: 04/03/19 10:49 Dose: 15 mg Gabapentin (Neurontin) 300 mg PO TID [facility] Last Admin: 04/03/19 10:44 Dose: 300 mg Ceftriaxone Sodium 2 gm/ (Sodium Chloride) 50 mls @ 100 mls/hr IV Q24H [facility] Sodium Chloride (Normal Saline) 1,000 mls @ 125 mls/hr IV ASDIRECTED [facility] Last Admin: 04/03/19 08:05 Dose: 125 mls/hr Lactobacillus Rhamnosus (Culturelle) 1 cap PO BID [facility] Last Admin: 04/03/19 10:43 Dose: 1 cap Lorazepam (Ativan) 0.5 mg IVPUSH Q4H PRN PRN Reason: Nausea/Vomiting Last Admin: 04/03/19 11:29 Dose: 0.5 mg Magnesium Hydroxide (Milk Of Magnesia) 30 ml PO Q12H PRN PRN Reason: Constipation Morphine Sulfate (Morphine) 4 mg IVPUSH Q2H PRN PRN Reason: Pain (severe 7-10) Last Admin: 04/03/19 11:32 Dose: 4 mg Nicotine (Habitrol) 14 mg TRDERM DAILY PRN PRN Reason: nicotine craving Last Admin: 04/03/19 10:40 Dose: 14 mg (Ethinyl Estradiol/Drospir (Loryna) 3mg -0.02mgPom 0 each PO DAILY [facility] Last Admin: 04/03/19 08:07 Dose: Not Given Ondansetron HCl (Zofran Odt) 4 mg PO Q6H PRN PRN Reason: Nausea able to take PO Last Admin: 04/03/19 08:27 Dose: 4 mg Ondansetron HCl (Zofran) 4 mg IV Q6H PRN PRN Reason: Nausea/Vomiting Oxycodone HCl (Oxycodone) 10 mg PO Q4H PRN PRN Reason: Pain (moderate 4-6) Last Admin: 04/03/19 07:54 Dose: 10 mg Pantoprazole Sodium (Protonix) 40 mg PO ACBREAKFAST [facility] Last Admin: 04/03/19 09:28 Dose: 40 mg Senna/Docusate Sodium (Senna Plus) 1 tab PO BID PRN PRN Reason: Constipation Sodium Chloride (Saline Flush) 10 ml FLUSH ASDIRECTED PRN PRN Reason: Keep Vein Open Last Admin: 04/02/19 19:07 Dose: 10 ml Tamsulosin HCl (Flomax) 0.4 mg PO PCBREAKFAST [facility] Last Admin: 04/03/19 10:43 Dose: 0.4 mg Discontinued Medications Sodium Chloride (Normal Saline) 1,000 mls @ 999 mls/hr IV .BOLUS STA Stop: 04/02/19 19:27 Last Admin: 04/02/19 18:48 Dose: 999 mls/hr Sodium Chloride (Normal Saline) 80 mls @ 3 mls/sec IV ASDIRECTED [facility] Last Admin: 04/02/19 19:07 Dose: 3 mls/sec Sodium Chloride (Normal Saline) 1,000 mls @ 125 mls/hr IV ASDIRECTED [facility] Last Admin: 04/02/19 20:15 Dose: 125 mls/hr Ceftriaxone Sodium 1 gm/ (Sodium Chloride) 50 mls @ 100 mls/hr IV ONETIME ONE Stop: 04/02/19 21:26 Last Admin: 04/02/19 21:14 Dose: 100 mls/hr Ceftriaxone Sodium 1 gm/ (Sodium Chloride) 50 mls @ 100 mls/hr IV ONETIME ONE Stop: 04/03/19 09:29 Last Admin: 04/03/19 08:58 Dose: 100 mls/hr Iopamidol (Isovue-300 (61%)) 150 ml IV . DIRECTED CATHRYN Last Admin: 04/02/19 19:07 Dose: 150 ml Morphine Sulfate (Morphine) 4 mg IVPUSH ONETIME ONE Stop: 04/02/19 18:28 Last Admin: 04/02/19 18:44 Dose: 4 mg Morphine Sulfate (Morphine) 4 mg IVPUSH ONETIME ONE Stop: 04/02/19 20:56 Last Admin: 04/02/19 21:15 Dose: 4 mg Potassium Chloride (Klor-Con M20) 20 meq PO ONETIME ONE Stop: 04/02/19 20:58 Last Admin: 04/02/19 21:10 Dose: 20 meq Potassium Chloride (Klor-Con M20) 20 meq PO ONETIME ONE Stop: 04/02/19 22:41 Last Admin: 04/02/19 23:08 Dose: 20 meq Potassium Chloride (Klor-Con M20) 40 meq PO ONETIME ONE Stop: 04/03/19 05:47 Last Admin: 04/03/19 06:10 Dose: 40 meq Tamsulosin HCl (Flomax) 0.4 mg PO ONETIME ONE Stop: 04/02/19 20:57 Last Admin: 04/02/19 21:10 Dose: 0.4 mg - Exam Quality Assessment: No: Supplemental Oxygen General: Alert, Oriented, Cooperative, Moderate Distress HEENT: Pupils Equal Lungs: Normal Respiratory Effort Cardiovascular: Regular Rhythm, Tachycardia GI/Abdominal Exam: Soft, No Distention Extremities: No Pedal Edema Psy/Mental Status: Alert, Normal Affect - Problem List & Annotations (1) Acute pyelonephritis SNOMED Code(s): 89866702 Code(s): N10 - ACUTE PYELONEPHRITIS Status: Acute Current Visit: Yes (2) Ureteric stone SNOMED Code(s): 96865111 Code(s): N20.1 - CALCULUS OF URETER Status: Acute Current Visit: Yes (3) Acute kidney injury SNOMED Code(s): 77627327, 77819850 Code(s): N17.9 - ACUTE KIDNEY FAILURE, UNSPECIFIED Status: Acute Current Visit: Yes (4) Hypokalemia SNOMED Code(s): 11917051 Code(s): E87.6 - HYPOKALEMIA Status: Acute Current Visit: Yes (5) Tobacco dependence syndrome SNOMED Code(s): 63104207 Code(s): F17.200 - NICOTINE DEPENDENCE, UNSPECIFIED, UNCOMPLICATED Status: Chronic Current Visit: Yes - Problem List Review Problem List Initiated/Reviewed/Updated: Yes - My Orders Last 24 Hours: My Active Orders 04/02/19 19:30 CULTURE URINE [RM] Routine 04/02/19 22:03 Resuscitation Status Routine 04/02/19 22:40 Patient Status [ADT] Routine Antiembolic Devices [RC] .Routine Intake and Output [RC] QSHIFT Notify Provider Vital Signs [RC] ASDIRECTED Oxygen Therapy [RC] PRN Up ad Heather [RC] ASDIRECTED VTE/DVT Education [RC] Per Unit Routine Vital Signs [RC] Q4H Acetaminophen [Tylenol] 650 mg PO Q4H PRN Docusate Sodium/Sennosides [Senna Plus] 1 tab PO BID PRN LORazepam [Ativan] 0.5 mg IVPUSH Q4H PRN Magnesium Hydroxide [Milk of Magnesia] 30 ml PO Q12H PRN Morphine 4 mg IVPUSH Q2H PRN Ondansetron [Zofran ODT] 4 mg PO Q6H PRN Ondansetron [Zofran] 4 mg IV Q6H PRN Sodium Chloride 0.9% [Normal Saline] 1,000 ml IV ASDIRECTED oxyCODONE 10 mg PO Q4H PRN Sequential Compression Device [OM.PC] Routine VTE Pharmacological Contraindications [AST] Routine 04/02/19 23:17 Nicotine [Habitrol] 14 mg TRDERM DAILY PRN 04/03/19 07:30 Pantoprazole [ProTONIX] 40 mg PO ACBREAKFAST 04/03/19 09:00 Amphetamine/Dextroamphetamine [Adderall] 15 mg PO BID@0900,1300 Ethinyl Estradiol/Drospirenone [Loryna 3 mg-0.02 mg Tablet] 0 each PO DAILY Gabapentin [Neurontin] 300 mg PO TID Lactobacillus Rhamnosus GG [Culturelle] 1 cap PO BID Tamsulosin [Flomax] 0.4 mg PO PCBREAKFAST 04/03/19 11:32 Discontinue Telemetry Monitoring [Cardiac Monitoring Discontinue] [RC] Click to Edit 04/03/19 12:00 Morphine 8 mg IVPUSH Q2H PRN 04/03/19 21:00 cefTRIAXone [Rocephin] 2 gm Sodium Chloride 0.9% [Normal Saline] 50 ml IV Q24H 04/04/19 05:00 BASIC METABOLIC PANEL,BMP [CHEM] Timed CBC W/O DIFF,HEMOGRAM [HEME] Timed (1) - Plan Plan:: ASSESSMENT AND PLAN - Right-sided pyelonephritis - this is a complication of a right ureteral stone and there is both hydronephrosis and hydroureter. Hopefully the stone has passed with significant improvement in her pain. White blood cell count trending down. No significant fevers. -Gentle fluids -Pain control -Antibiotic coverage with ceftriaxone -Follow-up Urine culture 4 mm right distal ureteral stone - Complicated by hydroureter and hydronephrosis. Hopefully the stone has passed with significant improvement in her pain. -Management as above Acute kidney injury - creatinine has improved overnight but not back to baseline. -Fluids as above with repeat labs in the morning Hypokalemia - still low this morning and will need additional supplementation. Tobacco dependence - patient is interested in a nicotine patch. Maintenance issues - - DVT prophylaxis - mechanical with hematuria - GI prophylaxis - not indicated - Nutrition - regular Disposition - I would anticipate discharge home after the hospital stay Primary care physician - Janki Reveles M.D.
[2019-04-03] MEDS ORDERED: Calcium Carbonate 500 MG Tab.Chew PO PRN (13:00)
[2019-04-03] MEDS: Acetaminophen 325 MG Tab PO PRN (13:34)
[2019-04-03] MEDS: Ondansetron 4 MG/2 ML SDV IV PRN (19:22)
[2019-04-03] MEDS: cefTRIAXone 2 GM in Sodium Chloride 0.9% 50 ML IV SCH (21:48)
[2019-04-04] MEDS: Sodium Chloride 0.9% 1,000 ML IV SCH ×3 (00:37→17:33)
[2019-04-04] MEDS: Acetaminophen 325 MG Tab PO PRN ×2 (01:07→20:04)
[2019-04-04] MEDS: oxyCODONE 5 MG Tab PO PRN ×4 (01:07→20:06)
[2019-04-04] MEDS: Morphine 4 MG/ML Syringe IVPUSH PRN ×6 (06:07→23:17)
[2019-04-04] MEDS: Pantoprazole 40 MG Tab.CR PO SCH (08:06)
[2019-04-04] MEDS: Lactobacillus Rhamnosus GG (Probiotic) Cap PO SCH ×2 (08:07→21:11)
[2019-04-04] MEDS: Tamsulosin 0.4 MG Cap.ER PO SCH (08:07)
[2019-04-04] MEDS: Gabapentin 300 MG Cap PO SCH ×3 (08:07→21:11)
[2019-04-04] MEDS: ETHINYL ESTRADIOL PO SCH (08:08)
[2019-04-04] MEDS: DROSPIRENONE PO SCH (08:08)
[2019-04-04] MEDS: Amphetamine/Dextroamphetamine Salts 10 MG Tab PO SCH ×2 (08:14→13:03)
[2019-04-04] MEDS: Ondansetron 4 MG/2 ML SDV IV PRN (08:31)
--- NOTE | 2019-04-04 10:36 | PCM.PN ---
- General Info Date of Service: 04/04/19 Subjective Update: No acute events overnight. In general her pain was pretty well controlled throughout the night. She did not have any fevers. Creatinine is stable compared to yesterday but white blood cell count has improved. This morning she is now in severe pain again. She describes sharp pain in the lower abdomen with radiation to the back. She has nausea associated with this. She continues to have hematuria. Functional Status: Reports: Tolerating Diet. Denies: Pain Controlled - Review of Systems General: Denies: Fever Gastrointestinal: Reports: Abdominal Pain Musculoskeletal: Reports: Back Pain - Patient Data Vitals - Most Recent: Last Vital Signs Temp 36.3 C 04/04/19 07:00 Pulse 108 H 04/04/19 07:00 Resp 20 04/04/19 07:00 BP 113/66 04/04/19 07:00 Pulse Ox 96 04/04/19 07:00 Weight - Most Recent: 119 kg I&O - Last 24 Hours: Intake & Output 04/03/19 04/04/19 04/04/19 22:59 06:59 14:59 Intake Total 2973 2572 640 Output Total 700 300 Balance 2273 2572 340 Lab Results Last 24 Hours: Laboratory Results - last 24 hr 04/04/19 04/04/19 Range/Units 06:20 06:20 WBC 11.0 (4.5-11.0) K/uL RBC 3.14 L (3.30-5.50) M/uL Hgb 8.5 L (12.0-15.0) g/dL Hct 26.3 L (36.0-48.0) % MCV 84 (80-98) fL MCH 27 (27-31) pg MCHC 32 (32-36) % Plt Count 263 (150-400) K/uL Sodium 134 L (140-148) mmol/L Potassium 3.7 (3.6-5.2) mmol/L Chloride 107 (100-108) mmol/L Carbon Dioxide 14 L (21-32) mmol/L Anion Gap 16.7 H (5.0-14.0) mmol/L BUN 37 H (7-18) mg/dL Creatinine 1.4 H (0.6-1.0) mg/dL Est Cr Clr Drug Dosing 51.91 mL/min Estimated GFR (MDRD) 44 L (>60) Glucose 96 (74-106) mg/dL Calcium 8.2 L (8.5-10.1) mg/dL [place] Results Last 24 Hours: Microbiology 04/02/19 19:30 Urine Culture - Preliminary Urine, Clean Catch Med Orders - Current: Current Medications Acetaminophen (Tylenol) 650 mg PO Q4H PRN PRN Reason: Pain (Mild 1-3)/fever Last Admin: 04/04/19 01:07 Dose: 650 mg Amphetamine/Dextroamphetamine (Adderall) 15 mg PO BID@0900,1300 [facility] Last Admin: 04/04/19 08:14 Dose: 15 mg Calcium Carbonate/Glycine (Tums) 1,000 mg PO Q2H PRN PRN Reason: Indigestion Last Admin: 04/03/19 17:32 Dose: 1,000 mg Gabapentin (Neurontin) 300 mg PO TID [facility] Last Admin: 04/04/19 08:07 Dose: 300 mg Ceftriaxone Sodium 2 gm/ (Sodium Chloride) 50 mls @ 100 mls/hr IV Q24H [facility] Last Admin: 04/03/19 21:48 Dose: 100 mls/hr Sodium Chloride (Normal Saline) 1,000 mls @ 125 mls/hr IV ASDIRECTED [facility] Last Admin: 04/04/19 09:16 Dose: 125 mls/hr Ketorolac Tromethamine (Toradol) 15 mg IVPUSH ONETIME ONE Stop: 04/04/19 10:33 Lactobacillus Rhamnosus (Culturelle) 1 cap PO BID [facility] Last Admin: 04/04/19 08:07 Dose: 1 cap Lorazepam (Ativan) 0.5 mg IVPUSH Q4H PRN PRN Reason: Nausea/Vomiting Last Admin: 04/03/19 11:29 Dose: 0.5 mg Magnesium Hydroxide (Milk Of Magnesia) 30 ml PO Q12H PRN PRN Reason: Constipation Morphine Sulfate (Morphine) 8 mg IVPUSH Q2H PRN PRN Reason: Pain (severe 7-10) Last Admin: 04/04/19 08:15 Dose: 8 mg Nicotine (Habitrol) 14 mg TRDERM DAILY PRN PRN Reason: nicotine craving Last Admin: 04/03/19 10:40 Dose: 14 mg (Ethinyl Estradiol/Drospir (Loryna) 3mg -0.02mgPom 0 each PO DAILY [facility] Last Admin: 04/04/19 08:08 Dose: Not Given Ondansetron HCl (Zofran Odt) 4 mg PO Q6H PRN PRN Reason: Nausea able to take PO Last Admin: 04/03/19 08:27 Dose: 4 mg Ondansetron HCl (Zofran) 4 mg IV Q6H PRN PRN Reason: Nausea/Vomiting Last Admin: 04/04/19 08:31 Dose: 4 mg Oxycodone HCl (Oxycodone) 10 mg PO Q4H PRN PRN Reason: Pain (moderate 4-6) Last Admin: 04/04/19 10:24 Dose: 10 mg Pantoprazole Sodium (Protonix) 40 mg PO ACBREAKFAST [facility] Last Admin: 04/04/19 08:06 Dose: 40 mg Senna/Docusate Sodium (Senna Plus) 1 tab PO BID PRN PRN Reason: Constipation Sodium Chloride (Saline Flush) 10 ml FLUSH ASDIRECTED PRN PRN Reason: Keep Vein Open Last Admin: 04/02/19 19:07 Dose: 10 ml Tamsulosin HCl (Flomax) 0.4 mg PO PCBREAKFAST [facility] Last Admin: 04/04/19 08:07 Dose: 0.4 mg Discontinued Medications Sodium Chloride (Normal Saline) 1,000 mls @ 999 mls/hr IV .BOLUS STA Stop: 04/02/19 19:27 Last Admin: 04/02/19 18:48 Dose: 999 mls/hr Sodium Chloride (Normal Saline) 80 mls @ 3 mls/sec IV ASDIRECTED [facility] Last Admin: 04/02/19 19:07 Dose: 3 mls/sec Sodium Chloride (Normal Saline) 1,000 mls @ 125 mls/hr IV ASDIRECTED [facility] Last Admin: 04/02/19 20:15 Dose: 125 mls/hr Ceftriaxone Sodium 1 gm/ (Sodium Chloride) 50 mls @ 100 mls/hr IV ONETIME ONE Stop: 04/02/19 21:26 Last Admin: 04/02/19 21:14 Dose: 100 mls/hr Ceftriaxone Sodium 1 gm/ (Sodium Chloride) 50 mls @ 100 mls/hr IV ONETIME ONE Stop: 04/03/19 09:29 Last Admin: 04/03/19 08:58 Dose: 100 mls/hr Iopamidol (Isovue-300 (61%)) 150 ml IV . DIRECTED CATHRYN Last Admin: 04/02/19 19:07 Dose: 150 ml Morphine Sulfate (Morphine) 4 mg IVPUSH ONETIME ONE Stop: 04/02/19 18:28 Last Admin: 04/02/19 18:44 Dose: 4 mg Morphine Sulfate (Morphine) 4 mg IVPUSH ONETIME ONE Stop: 04/02/19 20:56 Last Admin: 04/02/19 21:15 Dose: 4 mg Morphine Sulfate (Morphine) 4 mg IVPUSH Q2H PRN PRN Reason: Pain (severe 7-10) Last Admin: 04/03/19 11:32 Dose: 4 mg Potassium Chloride (Klor-Con M20) 20 meq PO ONETIME ONE Stop: 04/02/19 20:58 Last Admin: 04/02/19 21:10 Dose: 20 meq Potassium Chloride (Klor-Con M20) 20 meq PO ONETIME ONE Stop: 04/02/19 22:41 Last Admin: 04/02/19 23:08 Dose: 20 meq Potassium Chloride (Klor-Con M20) 40 meq PO ONETIME ONE Stop: 04/03/19 05:47 Last Admin: 04/03/19 06:10 Dose: 40 meq Potassium Chloride (Klor-Con M20) 40 meq PO ONETIME ONE Stop: 04/03/19 16:31 Last Admin: 04/03/19 17:32 Dose: 40 meq Tamsulosin HCl (Flomax) 0.4 mg PO ONETIME ONE Stop: 04/02/19 20:57 Last Admin: 04/02/19 21:10 Dose: 0.4 mg - Exam Quality Assessment: No: Supplemental Oxygen General: Alert, Oriented, Cooperative, Mild Distress HEENT: Pupils Equal Lungs: Normal Respiratory Effort GI/Abdominal Exam: No Distention Extremities: No Pedal Edema Psy/Mental Status: Alert, Normal Affect - Problem List & Annotations (1) Acute pyelonephritis SNOMED Code(s): 35298080 Code(s): N10 - ACUTE PYELONEPHRITIS Status: Acute Current Visit: Yes (2) Ureteric stone SNOMED Code(s): 35670793 Code(s): N20.1 - CALCULUS OF URETER Status: Acute Current Visit: Yes (3) Acute kidney injury SNOMED Code(s): 95050076, 67504779 Code(s): N17.9 - ACUTE KIDNEY FAILURE, UNSPECIFIED Status: Acute Current Visit: Yes (4) Hypokalemia SNOMED Code(s): 50903795 Code(s): E87.6 - HYPOKALEMIA Status: Acute Current Visit: Yes (5) Tobacco dependence syndrome SNOMED Code(s): 85521581 Code(s): F17.200 - NICOTINE DEPENDENCE, UNSPECIFIED, UNCOMPLICATED Status: Chronic Current Visit: Yes - Problem List Review Problem List Initiated/Reviewed/Updated: Yes - My Orders Last 24 Hours: My Active Orders 04/03/19 11:32 Discontinue Telemetry Monitoring [Cardiac Monitoring Discontinue] [RC] Click to Edit 04/03/19 12:00 Morphine 8 mg IVPUSH Q2H PRN 04/03/19 13:00 Calcium Carbonate [Tums] 1,000 mg PO Q2H PRN 04/03/19 21:00 cefTRIAXone [Rocephin] 2 gm Sodium Chloride 0.9% [Normal Saline] 50 ml IV Q24H 04/04/19 10:32 Ketorolac [Toradol] 15 mg IVPUSH ONETIME ONE 04/04/19 10:33 Cooling Warming Measures [RC] ASDIRECTED Heat Therapy [OM.PC] Routine 04/04/19 10:45 Potassium Chloride 20 MEQ,Lidocaine 1% 2 ML IN 100ML NS @ 50 MLS/HR Potassium Chloride 20 meq Lidocaine 1% [Xylocaine 1%] 2 ml Sodium Chloride 0.9% [Normal Saline] 100 ml IV Q2H 04/05/19 05:00 CBC W/O DIFF,HEMOGRAM [HEME] Timed (1) COMPREHENSIVE METABOLIC PN,CMP [CHEM] Timed - Plan Plan:: ASSESSMENT AND PLAN - Right-sided pyelonephritis - this is a complication of a right ureteral stone and there is both hydronephrosis and hydroureter. White blood cell count trending down and no fevers. Urine culture growing a gram-negative jade. -Gentle fluids -Pain control -Antibiotic coverage with ceftriaxone -Follow-up Urine culture 4 mm right distal ureteral stone - Complicated by hydroureter and hydronephrosis. Having severe pain again this morning and stone likely remains in the ureter. -Continue tamsulosin -Management as above -Consider urology consultation and probably transfer if not better tomorrow Acute kidney injury - creatinine is stable compared to yesterday and not back to baseline. -Fluids as above with repeat labs in the morning Hypokalemia - still low this morning and will need additional supplementation. Tobacco dependence - patient is interested in a nicotine patch. Maintenance issues - - DVT prophylaxis - mechanical with hematuria - GI prophylaxis - not indicated - Nutrition - regular Disposition - I would anticipate discharge home after the hospital stay unless she requires transfer to a higher level of care Primary care physician - Janki Reveles M.D.
[2019-04-04] MEDS ORDERED: Ketorolac 30 MG/ML SDV IVPUSH ONE (11:00)
[2019-04-04] MEDS: Nicotine 14 MG/24 Hr Patch TRDERM PRN (11:09)
[2019-04-04] MEDS ORDERED: Potassium Chloride 20 MEQ, Lidocaine 1% 2 ML in Sodium Chloride 0.9% 100 ML IV SCH (11:30)
[2019-04-04] MEDS: Ondansetron 4 MG Tab.DIS PO PRN (18:31)
[2019-04-04] MEDS: cefTRIAXone 2 GM in Sodium Chloride 0.9% 50 ML IV SCH (21:11)
[2019-04-05] MEDS: oxyCODONE 5 MG Tab PO PRN ×6 (00:17→22:53)
[2019-04-05] MEDS: Acetaminophen 325 MG Tab PO PRN ×3 (00:17→12:03)
[2019-04-05] MEDS: Sodium Chloride 0.9% 1,000 ML IV SCH ×2 (02:24→19:47)
[2019-04-05] MEDS: Morphine 4 MG/ML Syringe IVPUSH PRN ×3 (02:56→20:43)
[2019-04-05] MEDS: Ondansetron 4 MG Tab.DIS PO PRN (03:05)
[2019-04-05] MEDS: Ondansetron 4 MG/2 ML SDV IV PRN ×2 (08:04→17:48)
[2019-04-05] MEDS: Pantoprazole 40 MG Tab.CR PO SCH (08:06)
[2019-04-05] MEDS: Gabapentin 300 MG Cap PO SCH ×3 (08:06→20:50)
[2019-04-05] MEDS: Tamsulosin 0.4 MG Cap.ER PO SCH (08:06)
[2019-04-05] MEDS: Lactobacillus Rhamnosus GG (Probiotic) Cap PO SCH ×2 (08:06→20:50)
[2019-04-05] MEDS: ETHINYL ESTRADIOL PO SCH (08:06)
[2019-04-05] MEDS: DROSPIRENONE PO SCH (08:06)
[2019-04-05] MEDS: Amphetamine/Dextroamphetamine Salts 10 MG Tab PO SCH ×2 (08:13→13:10)
[2019-04-05] MEDS: Nicotine 14 MG/24 Hr Patch TRDERM PRN (09:25)
--- NOTE | 2019-04-05 10:01 | PCM.PN ---
- General Info Date of Service: 04/05/19 Subjective Update: No acute events overnight. Patient is still having a fair amount of lower abdominal pain though it's a little better today. She has been regularly using pain medications. Hematuria seems to have stopped. She reports that she's not passing large quantities of urine. She has been able to tolerate diet in between episodes of more severe pain. Urine culture grew out Escherichia coli that was sensitive ceftriaxone. Kidney function has improved today and creatinine is down to 1.1. White blood cell count normal. Functional Status: Reports: Tolerating Diet. Denies: Pain Controlled - Review of Systems General: Reports: Fever Gastrointestinal: Reports: Abdominal Pain Genitourinary: Reports: Dysuria - Patient Data Vitals - Most Recent: Last Vital Signs Temp 35.3 C 04/05/19 07:00 Pulse 105 H 04/05/19 07:00 Resp 18 04/05/19 07:00 BP 135/78 04/05/19 07:00 Pulse Ox 96 04/05/19 07:00 Weight - Most Recent: 119 kg I&O - Last 24 Hours: Intake & Output 04/04/19 04/05/19 04/05/19 22:59 06:59 14:59 Intake Total 1321 2387 Output Total 500 500 Balance 821 1887 Lab Results Last 24 Hours: Laboratory Results - last 24 hr 04/05/19 04/05/19 Range/Units 05:20 05:20 WBC 8.4 (4.5-11.0) K/uL RBC 2.68 L (3.30-5.50) M/uL Hgb 7.2 L (12.0-15.0) g/dL Hct 22.5 L (36.0-48.0) % MCV 84 (80-98) fL MCH 27 (27-31) pg MCHC 32 (32-36) % Plt Count 174 (150-400) K/uL Sodium 136 L (140-148) mmol/L Potassium 3.5 L (3.6-5.2) mmol/L Chloride 109 H (100-108) mmol/L Carbon Dioxide 17 L (21-32) mmol/L Anion Gap 13.5 (5.0-14.0) mmol/L BUN 27 H (7-18) mg/dL Creatinine 1.1 H (0.6-1.0) mg/dL Est Cr Clr Drug Dosing 66.07 mL/min Estimated GFR (MDRD) 58 L (>60) Glucose 87 (74-106) mg/dL Calcium 7.9 L (8.5-10.1) mg/dL Total Bilirubin 0.4 (0.2-1.0) mg/dL AST 47 H (15-37) U/L ALT 70 (12-78) U/L Alkaline Phosphatase 85 (46-116) U/L Total Protein 5.4 L (6.4-8.2) g/dL Albumin 2.0 L (3.4-5.0) g/dL Globulin 3.4 (2.3-3.5) g/dL Albumin/Globulin Ratio 0.6 L (1.2-2.2) Callum Results Last 24 Hours: Microbiology 04/02/19 19:30 Urine Culture - Final Urine, Clean Catch Escherichia Coli Med Orders - Current: Current Medications Acetaminophen (Tylenol) 650 mg PO Q4H PRN PRN Reason: Pain (Mild 1-3)/fever Last Admin: 04/05/19 04:38 Dose: 650 mg Amphetamine/Dextroamphetamine (Adderall) 15 mg PO BID@0900,1300 [facility] Last Admin: 04/05/19 08:13 Dose: 15 mg Calcium Carbonate/Glycine (Tums) 1,000 mg PO Q2H PRN PRN Reason: Indigestion Last Admin: 04/03/19 17:32 Dose: 1,000 mg Gabapentin (Neurontin) 300 mg PO TID [facility] Last Admin: 04/05/19 08:06 Dose: 300 mg Ceftriaxone Sodium 2 gm/ (Sodium Chloride) 50 mls @ 100 mls/hr IV Q24H [facility] Last Admin: 04/04/19 21:11 Dose: 100 mls/hr Lactobacillus Rhamnosus (Culturelle) 1 cap PO BID [facility] Last Admin: 04/05/19 08:06 Dose: 1 cap Lorazepam (Ativan) 0.5 mg IVPUSH Q4H PRN PRN Reason: Nausea/Vomiting Last Admin: 04/03/19 11:29 Dose: 0.5 mg Magnesium Hydroxide (Milk Of Magnesia) 30 ml PO Q12H PRN PRN Reason: Constipation Morphine Sulfate (Morphine) 8 mg IVPUSH Q2H PRN PRN Reason: Pain (severe 7-10) Last Admin: 04/05/19 02:56 Dose: 8 mg Nicotine (Habitrol) 14 mg TRDERM DAILY PRN PRN Reason: nicotine craving Last Admin: 04/05/19 09:25 Dose: 14 mg (Ethinyl Estradiol/Drospir (Loryna) 3mg -0.02mgPom 0 each PO DAILY [facility] Last Admin: 04/05/19 08:06 Dose: Not Given Ondansetron HCl (Zofran Odt) 4 mg PO Q6H PRN PRN Reason: Nausea able to take PO Last Admin: 04/05/19 03:05 Dose: 4 mg Ondansetron HCl (Zofran) 4 mg IV Q6H PRN PRN Reason: Nausea/Vomiting Last Admin: 04/05/19 08:04 Dose: 4 mg Oxycodone HCl (Oxycodone) 10 mg PO Q4H PRN PRN Reason: Pain (moderate 4-6) Last Admin: 04/05/19 08:58 Dose: 10 mg Pantoprazole Sodium (Protonix) 40 mg PO ACBREAKFAST [facility] Last Admin: 04/05/19 08:06 Dose: 40 mg Senna/Docusate Sodium (Senna Plus) 1 tab PO BID PRN PRN Reason: Constipation Sodium Chloride (Saline Flush) 10 ml FLUSH ASDIRECTED PRN PRN Reason: Keep Vein Open Last Admin: 04/02/19 19:07 Dose: 10 ml Tamsulosin HCl (Flomax) 0.4 mg PO PCBREAKFAST [facility] Last Admin: 04/05/19 08:06 Dose: 0.4 mg Discontinued Medications Sodium Chloride (Normal Saline) 1,000 mls @ 999 mls/hr IV .BOLUS STA Stop: 04/02/19 19:27 Last Admin: 04/02/19 18:48 Dose: 999 mls/hr Sodium Chloride (Normal Saline) 80 mls @ 3 mls/sec IV ASDIRECTED [facility] Last Admin: 04/02/19 19:07 Dose: 3 mls/sec Sodium Chloride (Normal Saline) 1,000 mls @ 125 mls/hr IV ASDIRECTED [facility] Last Admin: 04/02/19 20:15 Dose: 125 mls/hr Ceftriaxone Sodium 1 gm/ (Sodium Chloride) 50 mls @ 100 mls/hr IV ONETIME ONE Stop: 04/02/19 21:26 Last Admin: 04/02/19 21:14 Dose: 100 mls/hr Ceftriaxone Sodium 1 gm/ (Sodium Chloride) 50 mls @ 100 mls/hr IV ONETIME ONE Stop: 04/03/19 09:29 Last Admin: 04/03/19 08:58 Dose: 100 mls/hr Sodium Chloride (Normal Saline) 1,000 mls @ 125 mls/hr IV ASDIRECTED [facility] Last Admin: 04/05/19 02:24 Dose: 125 mls/hr Potassium Chloride 20 meq/Lidocaine HCl 2 ml/ Sodium Chloride 112 mls @ 56 mls/ hr IV Q2H [facility] Stop: 04/04/19 13:29 Last Admin: 04/04/19 12:59 Dose: 56 mls/hr Iopamidol (Isovue-300 (61%)) 150 ml IV . DIRECTED [facility] Last Admin: 04/02/19 19:07 Dose: 150 ml Ketorolac Tromethamine (Toradol) 15 mg IVPUSH ONETIME ONE Stop: 04/04/19 11:01 Last Admin: 04/04/19 11:12 Dose: 15 mg Morphine Sulfate (Morphine) 4 mg IVPUSH ONETIME ONE Stop: 04/02/19 18:28 Last Admin: 04/02/19 18:44 Dose: 4 mg Morphine Sulfate (Morphine) 4 mg IVPUSH ONETIME ONE Stop: 04/02/19 20:56 Last Admin: 04/02/19 21:15 Dose: 4 mg Morphine Sulfate (Morphine) 4 mg IVPUSH Q2H PRN PRN Reason: Pain (severe 7-10) Last Admin: 04/03/19 11:32 Dose: 4 mg Potassium Chloride (Klor-Con M20) 20 meq PO ONETIME ONE Stop: 04/02/19 20:58 Last Admin: 04/02/19 21:10 Dose: 20 meq Potassium Chloride (Klor-Con M20) 20 meq PO ONETIME ONE Stop: 04/02/19 22:41 Last Admin: 04/02/19 23:08 Dose: 20 meq Potassium Chloride (Klor-Con M20) 40 meq PO ONETIME ONE Stop: 04/03/19 05:47 Last Admin: 04/03/19 06:10 Dose: 40 meq Potassium Chloride (Klor-Con M20) 40 meq PO ONETIME ONE Stop: 04/03/19 16:31 Last Admin: 04/03/19 17:32 Dose: 40 meq Tamsulosin HCl (Flomax) 0.4 mg PO ONETIME ONE Stop: 04/02/19 20:57 Last Admin: 04/02/19 21:10 Dose: 0.4 mg - Exam Quality Assessment: No: Supplemental Oxygen General: Alert, Oriented, Cooperative, No Acute Distress Lungs: Normal Respiratory Effort Cardiovascular: Regular Rate, Regular Rhythm GI/Abdominal Exam: Soft, No Distention Extremities: No Pedal Edema Psy/Mental Status: Alert, Normal Affect - Problem List & Annotations (1) Acute pyelonephritis SNOMED Code(s): 12674861 Code(s): N10 - ACUTE PYELONEPHRITIS Status: Acute Current Visit: Yes (2) Ureteric stone SNOMED Code(s): 30299547 Code(s): N20.1 - CALCULUS OF URETER Status: Acute Current Visit: Yes (3) Acute kidney injury SNOMED Code(s): 51453848, 98338044 Code(s): N17.9 - ACUTE KIDNEY FAILURE, UNSPECIFIED Status: Acute Current Visit: Yes (4) Hypokalemia SNOMED Code(s): 81307170 Code(s): E87.6 - HYPOKALEMIA Status: Acute Current Visit: Yes (5) Tobacco dependence syndrome SNOMED Code(s): 50516485 Code(s): F17.200 - NICOTINE DEPENDENCE, UNSPECIFIED, UNCOMPLICATED Status: Chronic Current Visit: Yes - Problem List Review Problem List Initiated/Reviewed/Updated: Yes - My Orders Last 24 Hours: My Active Orders 04/04/19 10:33 Cooling Warming Measures [RC] ASDIRECTED Heat Therapy [OM.PC] Routine 04/05/19 09:58 Tamsulosin [Flomax] 0.4 mg PO ONETIME ONE 04/05/19 09:59 Ketorolac [Toradol] 30 mg IVPUSH Q6H PRN 04/05/19 10:00 Potassium Chloride [Klor-Con M20] 40 meq PO ONETIME ONE Sodium Chloride 0.9% [Normal Saline] 1,000 ml IV ASDIRECTED 04/06/19 05:00 BASIC METABOLIC PANEL,BMP [CHEM] Timed CBC W/O DIFF,HEMOGRAM [HEME] Timed (1) - Plan Plan:: ASSESSMENT AND PLAN - Right-sided pyelonephritis - this is a complication of a right ureteral stone and there is both hydronephrosis and hydroureter. White blood cell count is normal. She is having some low-grade fevers but overall is feeling better. -continue Gentle fluids -Pain control -Antibiotic coverage with ceftriaxone until stone has passed -Follow-up Urine culture 4 mm right distal ureteral stone - Complicated by hydroureter and hydronephrosis. pain seems a little better again today. Kidney function is improving so possibly the stone is on the move and not completely obstructing. holding off on urology referral because of improvement in kidney function, infection status and pain. -Continue tamsulosin with total of 0.8 mg given this morning -Management as above -Consider urology consultation and probably transfer if not better tomorrow Acute kidney injury - creatinine is slightly better again today. -Fluids as above with repeat labs in the morning Hypokalemia - still low this morning and will need additional supplementation. Tobacco dependence - patient is utilizing a nicotine patch. Maintenance issues - - DVT prophylaxis - mechanical with hematuria - GI prophylaxis - not indicated - Nutrition - regular Disposition - I would anticipate discharge home after the hospital stay unless she requires transfer to a higher level of care Primary care physician - Janki Reveles M.D.
[2019-04-05] MEDS ORDERED: Tamsulosin 0.4 MG Cap.ER PO ONE (10:30)
[2019-04-05] MEDS ORDERED: Potassium Chloride 20 MEQ Tab.ER PO ONE (10:30)
[2019-04-05] MEDS: Ketorolac 30 MG/ML SDV IVPUSH PRN ×2 (10:37→17:41)
[2019-04-05] MEDS: cefTRIAXone 2 GM in Sodium Chloride 0.9% 50 ML IV SCH (21:15)
[2019-04-06] MEDS: Morphine 4 MG/ML Syringe IVPUSH PRN ×2 (01:25→09:44)
[2019-04-06] MEDS: Ketorolac 30 MG/ML SDV IVPUSH PRN (03:30)
[2019-04-06] MEDS: oxyCODONE 5 MG Tab PO PRN ×3 (03:31→11:46)
[2019-04-06] MEDS: Sodium Chloride 0.9% 1,000 ML IV SCH (06:40)
[2019-04-06] MEDS: Pantoprazole 40 MG Tab.CR PO SCH (07:17)
[2019-04-06] MEDS: Nicotine 14 MG/24 Hr Patch TRDERM PRN (07:42)
[2019-04-06] MEDS: Lactobacillus Rhamnosus GG (Probiotic) Cap PO SCH (08:27)
[2019-04-06] MEDS: Gabapentin 300 MG Cap PO SCH (08:27)
[2019-04-06] MEDS: Tamsulosin 0.4 MG Cap.ER PO SCH (08:27)
[2019-04-06] MEDS: Amphetamine/Dextroamphetamine Salts 10 MG Tab PO SCH (08:27)
[2019-04-06] MEDS: ETHINYL ESTRADIOL PO SCH (08:29)
[2019-04-06] MEDS: DROSPIRENONE PO SCH (08:29)
[2019-04-06] MEDS: Acetaminophen 325 MG Tab PO PRN (08:46)
[2019-04-06] MEDS: Ondansetron 4 MG/2 ML SDV IV PRN (08:47)
[2019-04-06] MEDS ORDERED: Potassium Chloride 20 MEQ Tab.ER PO ONE (09:00)
--- NOTE | 2019-04-06 11:45 | PCM.DCSUM1 ---
Discharge Summary - Hospital Course Brief History: Ms. Jose is a 33-year-old woman who was admitted through the emergency department with flank pain, fever, nausea, and vomiting, secondary to right pyelonephritis and a right ureteral stone. - Discharge Data Discharge Date: 04/06/19 Discharge Disposition: DC/Tfer to Acute Hospital 02 Condition: Poor - Referral to [facility] Primary Care Physician: Janki Garzon PA-C - Discharge Diagnosis/Problem(s) (1) Acute blood loss anemia SNOMED Code(s): 494523920 ICD Code: D62 - ACUTE POSTHEMORRHAGIC ANEMIA Status: Acute Current Visit : Yes (2) Acute pyelonephritis SNOMED Code(s): 09606081 ICD Code: N10 - ACUTE PYELONEPHRITIS Status: Acute Current Visit: Yes (3) Acute kidney injury SNOMED Code(s): 33913631, 51732623 ICD Code: N17.9 - ACUTE KIDNEY FAILURE, UNSPECIFIED Status: Acute Current Visit: Yes (4) Ureteric stone SNOMED Code(s): 15115330 ICD Code: N20.1 - CALCULUS OF URETER Status: Acute Current Visit: Yes (5) Hematuria SNOMED Code(s): 40012262 ICD Code: R31.9 - HEMATURIA, UNSPECIFIED Status: Acute Current Visit: Yes - Patient Summary/Data Hospital Course: Ms. Jose presented to the emergency room with 5 days of what she thought was vaginal bleeding. She reports passing blood from the vaginal area, sometimes with urination and sometimes she thought without trying to pass urine. The blood has continued so she thought she should be checked out. She also describes moderately severe suprapubic pain, especially with trying to pass urine. She also endorses significant dysuria. She's never had pain like this in the past. She has had some subjective fevers and chills but no rigors or measured fevers. She's had some nausea and has vomited anytime she tried to eat anything in the past few days. Appetite and oral intake have been very poor. In the emergency room she was noted to have an elevated white blood cell count of 18,000, mild hypokalemia, acute kidney injury with a creatinine 1.8 and a urine strongly suggestive of infection as well as hematuria. CT scan of the abdomen showed a 4 mm stone in the distal ureter and probable right pyelonephritis.. She'll be admitted for management of pyelonephritis complicating a ureteral stone. Blood and urine cultures were obtained in the emergency department. On admission she was given IV fluids for hydration, there was no evidence of underlying sepsis. Medication was also given as needed for an and nausea. Antibiotic therapy was initiated with ceftriaxone. Urine culture grew out Escherichia coli, sensitive to the ceftriaxone. Through her hospitalization she developed progressive anemia, on the day of discharge hemoglobin was down to 7.4. Progressive anemia was felt to be secondary to hematuria. She continued to experience significant pain in the right flank and right suprapubic area. Because of persistent symptoms she will be transferred to tertiary care center for urology consult. She will be transferred via [facility]. - Patient Instructions Diet: Usual Diet as Tolerated Activity: As Tolerated Other/Special Instructions: Patient will be transfered to [place], [place] - Discharge Plan *PRESCRIPTION DRUG MONITORING PROGRAM REVIEWED*: Not Applicable *COPY OF PRESCRIPTION DRUG MONITORING REPORT IN PATIENT LESIA: Not Applicable Home Medications: Home Meds Ethinyl Estradiol/Drospirenone [Loryna 3 mg-0.02 mg Tablet] 1 each PO DAILY 02/11 [History] Gabapentin [Neurontin] 300 mg PO TID 03/04/18 [History] Ibuprofen [Motrin] 800 mg PO Q8H PRN 04/02/19 [History] Amphetamine/Dextroamphetamine [Adderall] 15 mg PO BID@09,13 04/03/19 [History] Lactobacillus Rhamnosus GG [Culturelle] 1 cap PO BID cap 04/06/19 [Rx] Morphine 8 mg IVPUSH Q2H PRN syringe 04/06/19 [Rx] Tamsulosin [Flomax] 0.4 mg PO PCBREAKFAST cap.er 04/06/19 [Rx] cefTRIAXone [Rocephin] 2 gm IV Q24H vial 04/06/19 [Rx] Referrals: Janki Garzon PA-C [Primary Care Provider] - 04/09/19 2:30 pm (Please arrive 15 minutes early to register for your appointment.) - Discharge Summary/Plan Comment DC Time >30 min.: No - Patient Data Vitals - Most Recent: Last Vital Signs Temp 96.9 F 04/06/19 10:50 Pulse 108 H 04/06/19 10:50 Resp 16 04/06/19 10:50 BP 131/79 04/06/19 10:50 Pulse Ox 94 L 04/06/19 10:50 Weight - Most Recent: 262 lb I&O - Last 24 hours: Intake & Output 04/05/19 04/06/19 04/06/19 22:59 06:59 14:59 Intake Total 1230 976 500 Output Total 650 300 300 Balance 580 676 200 Lab Results - Last 24 hrs: Laboratory Results - last 24 hr 04/06/19 04/06/19 Range/Units 04:30 04:30 WBC 7.7 (4.5-11.0) K/uL RBC 2.72 L (3.30-5.50) M/uL Hgb 7.4 L (12.0-15.0) g/dL Hct 22.9 L (36.0-48.0) % MCV 84 (80-98) fL MCH 27 (27-31) pg MCHC 32 (32-36) % Plt Count 171 (150-400) K/uL Sodium 137 L (140-148) mmol/L Potassium 3.4 L (3.6-5.2) mmol/L Chloride 110 H (100-108) mmol/L Carbon Dioxide 14 L (21-32) mmol/L Anion Gap 16.4 H (5.0-14.0) mmol/L BUN 18 (7-18) mg/dL Creatinine 1.0 (0.6-1.0) mg/dL Est Cr Clr Drug Dosing 63.88 mL/min Estimated GFR (MDRD) > 60 (>60) Glucose 94 (74-106) mg/dL Calcium 7.7 L (8.5-10.1) mg/dL DINESH Results - Last 24 hrs: Microbiology 04/02/19 19:30 Urine Culture - Final Urine, Clean Catch Escherichia Coli Med Orders - Current: Current Medications Acetaminophen (Tylenol) 650 mg PO Q4H PRN PRN Reason: Pain (Mild 1-3)/fever Last Admin: 04/06/19 08:46 Dose: 650 mg Amphetamine/Dextroamphetamine (Adderall) 15 mg PO BID@0900,1300 [facility] Last Admin: 04/06/19 08:27 Dose: 15 mg Calcium Carbonate/Glycine (Tums) 1,000 mg PO Q2H PRN PRN Reason: Indigestion Last Admin: 04/03/19 17:32 Dose: 1,000 mg Ferrous Sulfate (Ferrous Sulfate) 325 mg PO BIDMEALS [facility] Gabapentin (Neurontin) 300 mg PO TID [facility] Last Admin: 04/06/19 08:27 Dose: 300 mg Ceftriaxone Sodium 2 gm/ (Sodium Chloride) 50 mls @ 100 mls/hr IV Q24H [facility] Last Admin: 04/05/19 21:15 Dose: 100 mls/hr Sodium Chloride (Normal Saline) 1,000 mls @ 100 mls/hr IV ASDIRECTED [facility] Last Admin: 04/06/19 06:40 Dose: 100 mls/hr Ketorolac Tromethamine (Toradol) 30 mg IVPUSH Q6H PRN PRN Reason: Pain (moderate 4-6) Stop: 04/10/19 09:59 Last Admin: 04/06/19 03:30 Dose: 30 mg Lactobacillus Rhamnosus (Culturelle) 1 cap PO BID [facility] Last Admin: 04/06/19 08:27 Dose: 1 cap Lorazepam (Ativan) 0.5 mg IVPUSH Q4H PRN PRN Reason: Nausea/Vomiting Last Admin: 04/03/19 11:29 Dose: 0.5 mg Magnesium Hydroxide (Milk Of Magnesia) 30 ml PO Q12H PRN PRN Reason: Constipation Morphine Sulfate (Morphine) 8 mg IVPUSH Q2H PRN PRN Reason: Pain (severe 7-10) Last Admin: 04/06/19 09:44 Dose: 8 mg Nicotine (Habitrol) 14 mg TRDERM DAILY PRN PRN Reason: nicotine craving Last Admin: 04/06/19 07:42 Dose: 14 mg (Ethinyl Estradiol/Drospir (Loryna) 3mg -0.02mgPom 0 each PO DAILY [facility] Last Admin: 04/06/19 08:29 Dose: Not Given Ondansetron HCl (Zofran Odt) 4 mg PO Q6H PRN PRN Reason: Nausea able to take PO Last Admin: 04/05/19 03:05 Dose: 4 mg Ondansetron HCl (Zofran) 4 mg IV Q6H PRN PRN Reason: Nausea/Vomiting Last Admin: 04/06/19 08:47 Dose: 4 mg Oxycodone HCl (Oxycodone) 10 mg PO Q4H PRN PRN Reason: Pain (moderate 4-6) Last Admin: 04/06/19 07:29 Dose: 10 mg Pantoprazole Sodium (Protonix) 40 mg PO ACBREAKFAST [facility] Last Admin: 04/06/19 07:17 Dose: 40 mg Senna/Docusate Sodium (Senna Plus) 1 tab PO BID PRN PRN Reason: Constipation Sodium Chloride (Saline Flush) 10 ml FLUSH ASDIRECTED PRN PRN Reason: Keep Vein Open Last Admin: 04/02/19 19:07 Dose: 10 ml Tamsulosin HCl (Flomax) 0.4 mg PO PCBREAKFAST [facility] Last Admin: 04/06/19 08:27 Dose: 0.4 mg Discontinued Medications Sodium Chloride (Normal Saline) 1,000 mls @ 999 mls/hr IV .BOLUS STA Stop: 04/02/19 19:27 Last Admin: 04/02/19 18:48 Dose: 999 mls/hr Sodium Chloride (Normal Saline) 80 mls @ 3 mls/sec IV ASDIRECTED [facility] Last Admin: 04/02/19 19:07 Dose: 3 mls/sec Sodium Chloride (Normal Saline) 1,000 mls @ 125 mls/hr IV ASDIRECTED [facility] Last Admin: 04/02/19 20:15 Dose: 125 mls/hr Ceftriaxone Sodium 1 gm/ (Sodium Chloride) 50 mls @ 100 mls/hr IV ONETIME ONE Stop: 04/02/19 21:26 Last Admin: 04/02/19 21:14 Dose: 100 mls/hr Ceftriaxone Sodium 1 gm/ (Sodium Chloride) 50 mls @ 100 mls/hr IV ONETIME ONE Stop: 04/03/19 09:29 Last Admin: 04/03/19 08:58 Dose: 100 mls/hr Sodium Chloride (Normal Saline) 1,000 mls @ 125 mls/hr IV ASDIRECTED [facility] Last Admin: 04/05/19 02:24 Dose: 125 mls/hr Potassium Chloride 20 meq/Lidocaine HCl 2 ml/ Sodium Chloride 112 mls @ 56 mls/ hr IV Q2H [facility] Stop: 04/04/19 13:29 Last Admin: 04/04/19 12:59 Dose: 56 mls/hr Iopamidol (Isovue-300 (61%)) 150 ml IV . DIRECTED [facility] Last Admin: 04/02/19 19:07 Dose: 150 ml Ketorolac Tromethamine (Toradol) 15 mg IVPUSH ONETIME ONE Stop: 04/04/19 11:01 Last Admin: 04/04/19 11:12 Dose: 15 mg Morphine Sulfate (Morphine) 4 mg IVPUSH ONETIME ONE Stop: 04/02/19 18:28 Last Admin: 04/02/19 18:44 Dose: 4 mg Morphine Sulfate (Morphine) 4 mg IVPUSH ONETIME ONE Stop: 04/02/19 20:56 Last Admin: 04/02/19 21:15 Dose: 4 mg Morphine Sulfate (Morphine) 4 mg IVPUSH Q2H PRN PRN Reason: Pain (severe 7-10) Last Admin: 04/03/19 11:32 Dose: 4 mg Potassium Chloride (Klor-Con M20) 20 meq PO ONETIME ONE Stop: 04/02/19 20:58 Last Admin: 04/02/19 21:10 Dose: 20 meq Potassium Chloride (Klor-Con M20) 20 meq PO ONETIME ONE Stop: 04/02/19 22:41 Last Admin: 04/02/19 23:08 Dose: 20 meq Potassium Chloride (Klor-Con M20) 40 meq PO ONETIME ONE Stop: 04/03/19 05:47 Last Admin: 04/03/19 06:10 Dose: 40 meq Potassium Chloride (Klor-Con M20) 40 meq PO ONETIME ONE Stop: 04/03/19 16:31 Last Admin: 04/03/19 17:32 Dose: 40 meq Potassium Chloride (Klor-Con M20) 40 meq PO ONETIME ONE Stop: 04/05/19 10:31 Last Admin: 04/05/19 10:37 Dose: 40 meq Potassium Chloride (Klor-Con M20) 40 meq PO ONETIME ONE Stop: 04/06/19 09:01 Last Admin: 04/06/19 09:43 Dose: 40 meq Tamsulosin HCl (Flomax) 0.4 mg PO ONETIME ONE Stop: 04/02/19 20:57 Last Admin: 04/02/19 21:10 Dose: 0.4 mg Tamsulosin HCl (Flomax) 0.4 mg PO ONETIME ONE Stop: 04/05/19 10:31 Last Admin: 04/05/19 10:37 Dose: 0.4 mg - Exam General: Reports: Alert, Oriented, Cooperative, Moderate Distress Lungs: Reports: Clear to Auscultation, Normal Respiratory Effort Cardiovascular: Reports: Regular Rate, Regular Rhythm, No Murmurs GI/Abdominal Exam: Soft, No Organomegaly, Tender. No: Distended, Guarding, Rigid, Rebound Back Exam: Reports: CVA Tenderness (R) *Q Meaningful Use (DIS) - VTE *Q VTE Pharmacological Contraindications *Q: Risk of Bleeding
[2019-04-06] MEDS ORDERED: Ferrous Sulfate 325 MG Tab PO SCH (17:00)
== END 2019-04-06 12:22 | DRG 690 ==
LOC: JP.ED 17:20 → JP.MS 22:02
PROVIDERS: ADMIT Internal Medicine; ATTEND Internal Medicine
DX: N13.6 Pyonephrosis (principal); D62 Acute posthemorrhagic anemia; E87.2 Acidosis; Z16.29 Resistance to other single specified antibiotic; N17.9 Acute kidney failure, unspecified; E87.6 Hypokalemia; F17.200 Nicotine dependence, unspecified, uncomplicated; F41.9 Anxiety disorder, unspecified; F90.9 Attention-deficit hyperactivity disorder, unspecified type; B96.20 Unspecified Escherichia coli [E. coli] as the cause of diseases classified elsewhere; Z79.899 Other long term (current) drug therapy
CPT/HCPCS: 36415; 74177; 80048; 80053; 81001; 81025; 83605; 83690; 85025; 85027; 85610; 85730; 87086; 87088; 87186; 96361; 96365; 96375; 96376; 99285-25; A9270-GY; J0696; J1885; J2001; J2060; J2270; J2405; J3480; J7030; J7050

== ENCOUNTER 2019-04-19 19:17 | Inpatient (IN) | payer MEDICAID ==
[2019-04-19] MEDS ORDERED: Ondansetron 4 MG/2 ML SDV IVPUSH ONE (20:06)
[2019-04-19] MEDS ORDERED: HYDROmorphone 1 MG/ML Syringe IVPUSH ONE ×2 (20:07→21:55)
--- NOTE | 2019-04-19 20:07 | EDM.PDOC ---
ED HPI GENERAL MEDICAL PROBLEM - General Chief Complaint: Genitourinary Problem Stated Complaint: POSSIBLE KIDNEY STONES Time Seen by Provider: 04/19/19 20:07 Source of Information: Reports: Patient History Limitations: Reports: No Limitations - History of Present Illness INITIAL COMMENTS - FREE TEXT/NARRATIVE: pt arrived with a history of having a marked increase in her pain today. She has sharp pain which is down by the bladder. She has severe pain in the area just to the left of the epigstric area. Onset: Other (pain did get alot worse today. ) Duration: Hour(s): Location: Reports: Abdomen Associated Symptoms: Reports: Other (pt in the last 2 weeks had stone on the rt side wih severe pain. She had a marked hydro on the rt and she had a UTI. She did not pass the stone in the first 48 hours so she was sent to [facility] and the stone was removed. She returns at thios time and one of the stones that was up in the left kidney has moved into the ureter and it is now close to the bladder. ) Left Flank Pain Score (Numeric/FACES): 8 Abdomen Pain Score (Numeric/FACES): 3 - Related Data Allergies Allergy/AdvReac Type Severity Reaction Status Date / Time No Known Allergies Allergy Verified 04/19/19 19:44 Home Meds: Home Meds Ethinyl Estradiol/Drospirenone [Loryna 3 mg-0.02 mg Tablet] 1 each PO DAILY 02/11 [History] Gabapentin [Neurontin] 300 mg PO TID 03/04/18 [History] Amphetamine/Dextroamphetamine [Adderall] 15 mg PO BID@,04/03/19 [History] Tamsulosin [Flomax] 0.4 mg PO PCBREAKFAST cap.er 04/06/19 [Rx] Ciprofloxacin HCl [Cipro] 500 mg PO BID 04/19/19 [History] Potassium Chloride 20 meq PO BID 04/19/19 [History] valACYclovir [Valtrex] 1,000 mg PO BID 04/19/19 [History] Past Medical History HEENT History: Reports: Other (See Below) Other HEENT History: Dental Carries/Broken teeth Genitourinary History: Reports: Renal Calculus [employer] History: Reports: , Spontaneous Psychiatric History: Reports: ADHD, Anxiety - Past Surgical History Head Surgeries/Procedures: Reports: None HEENT Surgical History: Reports: Oral Surgery Female Surgical History: Reports: Kidney stone extraction Dermatological Surgical History: Reports: None Social & Family History - Family History Family Medical History: Unobtainable - Tobacco Use Smoking Status *Q: Current Every Day Smoker Years of Tobacco use: 15 Packs/Tins Daily: 0.5 - Caffeine Use Caffeine Use: Reports: Coffee - Recreational Drug Use Recreational Drug Use: No ED ROS GENERAL - Review of Systems Review Of Systems: See Below Constitutional: Reports: Chills, Malaise, Diaphoresis, Other ( severe pain at times in the left lower abdoman and to the left of the epigastric area. ) HEENT: Reports: No Symptoms Respiratory: Reports: No Symptoms Cardiovascular: Reports: No Symptoms Endocrine: Reports: No Symptoms GI/Abdominal: Reports: Abdominal Pain, Decreased Appetite, Nausea : Reports: Flank Pain, Hematuria Musculoskeletal: Reports: No Symptoms Skin: Reports: No Symptoms Neurological: Reports: No Symptoms Psychiatric: Reports: No Symptoms ED EXAM, GI/ABD - Physical Exam Exam: See Below Text/Narrative:: pt arrived with pain to the left of the epigastric area and she also has pain in the left lower abdoman. Exam Limited By: No Limitations General Appearance: Alert, Anxious, Severe Distress, Active Emesis Ears: Normal TMs Nose: Normal Inspection Throat/Mouth: Normal Inspection Head: Atraumatic Neck: Normal Inspection Respiratory/Chest: No Respiratory Distress Cardiovascular: Regular Rate, Rhythm GI/Abdominal Exam: Tender, Other (pt i tender in the left upper abdoman to the left of the epigastric area. ) (Female) Exam: Deferred Rectal (Female) Exam: Deferred Back Exam: Normal Inspection Extremities: Normal Inspection Neurological: Alert, Oriented, Normal Cognition Psychiatric: Anxious Course - Vital Signs Last Recorded V/S: Last Vital Signs Temp 36.6 C 04/23/19 03:00 Pulse 83 04/23/19 03:00 Resp 16 04/23/19 03:00 BP 139/83 04/23/19 03:00 Pulse Ox 97 04/23/19 03:00 - Orders/Labs/Meds Orders: Medication Orders Promethazine HCl 12.5 mg/ (Sodium Chloride) 50.5 mls @ 200 mls/hr IV Q6H PRN PRN Reason: Nausea/Vomiting Last Admin: 04/20/19 08:20 Dose: 200 mls/hr Nicotine (Habitrol) 14 mg TRDERM DAILY [facility] Last Admin: 04/22/19 08:11 Dose: 14 mg Admin: 04/21/19 10:22 Dose: 14 mg Admin: 04/20/19 10:20 Dose: Admin: 04/20/19 01:05 Dose: 14 mg Ondansetron HCl (Zofran) 4 mg IV Q4H PRN PRN Reason: Nausea/Vomiting Last Admin: 04/22/19 17:05 Dose: 4 mg Admin: 04/21/19 06:46 Dose: 4 mg Admin: 04/20/19 11:40 Dose: 4 mg Admin: 04/20/19 06:00 Dose: 4 mg Admin: 04/20/19 01:04 Dose: 4 mg Oxycodone HCl (Oxycodone) 5 mg PO Q4H PRN PRN Reason: Pain Last Admin: 04/23/19 05:15 Dose: 5 mg Admin: 04/22/19 21:08 Dose: 5 mg Admin: 04/22/19 16:48 Dose: 5 mg Admin: 04/22/19 12:39 Dose: 5 mg Admin: 04/22/19 08:11 Dose: 5 mg Admin: 04/22/19 04:06 Dose: 5 mg Admin: 04/21/19 22:55 Dose: 5 mg Admin: 04/21/19 17:30 Dose: 5 mg Admin: 04/21/19 13:30 Dose: 5 mg Pantoprazole Sodium (Protonix) 40 mg PO DAILY@0730 [facility] Last Admin: 04/22/19 07:30 Dose: 40 mg Labs: Laboratory Tests 04/19/19 04/19/19 04/19/19 Range/Units 20:20 20:20 20:27 WBC 9.9 (4.5-11.0) K/uL RBC 4.13 (3.30-5.50) M/uL Hgb 11.3 L D (12.0-15.0) g/dL Hct 36.0 (36.0-48.0) % MCV 87 (80-98) fL MCH 27 (27-31) pg MCHC 31 L (32-36) % Plt Count 423 H (150-400) K/uL Neut % (Auto) 39 (36-66) % Lymph % (Auto) 49 H (24-44) % [place] % (Auto) 10 H (2-6) % Eos % (Auto) 2 (2-4) % Baso % (Auto) 1 (0-1) % Sodium 140 (140-148) mmol/L Potassium 4.0 (3.6-5.2) mmol/L Chloride 105 (100-108) mmol/L Carbon Dioxide 21 (21-32) mmol/L Anion Gap 13.6 (5.0-14.0) mmol/L BUN 15 (7-18) mg/dL Creatinine 0.8 (0.6-1.0) mg/dL Est Cr Clr Drug Dosing 90.84 mL/min Estimated GFR (MDRD) > 60 (>60) Glucose 167 H (74-106) mg/dL Calcium 9.1 D (8.5-10.1) mg/dL Total Bilirubin 0.4 (0.2-1.0) mg/dL AST 59 H (15-37) U/L ALT 79 H (12-78) U/L Alkaline Phosphatase 110 (46-116) U/L Total Protein 7.8 (6.4-8.2) g/dL Albumin 3.2 L (3.4-5.0) g/dL Globulin 4.6 H (2.3-3.5) g/dL Albumin/Globulin Ratio 0.7 L (1.2-2.2) Triglycerides (15-150) mg/dL Amylase (25-115) U/L Lipase (73-393) U/L Urine Color Yellow (YELLOW) Urine Appearance Cloudy A (CLEAR) Urine pH 6.5 (5.0-8.0) Ur Specific [place] >= 1.030 (1.008-1.030) Urine Protein 30 H (NEGATIVE) mg/dL Urine Glucose (UA) Negative (NEGATIVE) mg/dL Urine Ketones Trace H (NEGATIVE) mg/dL Urine Occult Blood Moderate H (NEGATIVE) Urine Nitrite Negative (NEGATIVE) Urine Bilirubin Small H (NEGATIVE) Urine Urobilinogen 1.0 (0.2-1.0) EU/dL Ur Leukocyte Esterase Trace H (NEGATIVE) Urine RBC 50-75 H (0-5) Urine WBC 5-10 H (0-5) Ur Epithelial Cells Many Amorphous Sediment Not seen Urine Bacteria Many Urine Mucus Numerous Urine HCG, Qual 04/19/19 04/19/19 04/19/19 Range/Units 20:30 20:30 21:27 WBC (4.5-11.0) K/uL RBC (3.30-5.50) M/uL Hgb (12.0-15.0) g/dL Hct (36.0-48.0) % MCV (80-98) fL MCH (27-31) pg MCHC (32-36) % Plt Count (150-400) K/uL Neut % (Auto) (36-66) % Lymph % (Auto) (24-44) % [place] % (Auto) (2-6) % Eos % (Auto) (2-4) % Baso % (Auto) (0-1) % Sodium (140-148) mmol/L Potassium (3.6-5.2) mmol/L Chloride (100-108) mmol/L Carbon Dioxide (21-32) mmol/L Anion Gap (5.0-14.0) mmol/L BUN (7-18) mg/dL Creatinine (0.6-1.0) mg/dL Est Cr Clr Drug Dosing mL/min Estimated GFR (MDRD) (>60) Glucose (74-106) mg/dL Calcium (8.5-10.1) mg/dL Total Bilirubin (0.2-1.0) mg/dL AST (15-37) U/L ALT (12-78) U/L Alkaline Phosphatase (46-116) U/L Total Protein (6.4-8.2) g/dL Albumin (3.4-5.0) g/dL Globulin (2.3-3.5) g/dL Albumin/Globulin Ratio (1.2-2.2) Triglycerides 200 H (15-150) mg/dL Amylase 258 H (25-115) U/L Lipase 1640 H (73-393) U/L Urine Color (YELLOW) Urine Appearance (CLEAR) Urine pH (5.0-8.0) Ur Specific [place] (1.008-1.030) Urine Protein (NEGATIVE) mg/dL Urine Glucose (UA) (NEGATIVE) mg/dL Urine Ketones (NEGATIVE) mg/dL Urine Occult Blood (NEGATIVE) Urine Nitrite (NEGATIVE) Urine Bilirubin (NEGATIVE) Urine Urobilinogen (0.2-1.0) EU/dL Ur Leukocyte Esterase (NEGATIVE) Urine RBC (0-5) Urine WBC (0-5) Ur Epithelial Cells Amorphous Sediment Urine Bacteria Urine Mucus Urine HCG, Qual Negative Meds: Medications Generic Name Dose Route Start Last Admin Trade Name Teofilo PRN Reason Stop Dose Admin Promethazine HCl 12.5 mg/ 50.5 mls @ 200 mls/hr 04/20/19 00:39 04/20/19 08:20 Sodium Chloride IV 200 mls/hr Q6H PRN Administration Nausea/Vomiting Nicotine 14 mg 04/20/19 00:30 04/22/19 08:11 Habitrol TRDERM 14 mg DAILY CATHRYN Administration Ondansetron HCl 4 mg 04/20/19 00:30 04/22/19 17:05 Zofran IV 4 mg Q4H PRN Administration Nausea/Vomiting Oxycodone HCl 5 mg 04/21/19 13:15 04/23/19 05:15 Oxycodone PO 5 mg Q4H PRN Administration Pain Pantoprazole Sodium 40 mg 04/22/19 07:30 04/22/19 07:30 Protonix PO 40 mg DAILY@0730 CATHRYN Administration Discontinued Medications Generic Name Dose Route Start Last Admin Trade Name Teofilo PRN Reason Stop Dose Admin Hydromorphone HCl 1 mg 04/19/19 20:07 04/19/19 20:28 Dilaudid IVPUSH 04/19/19 20:08 1 mg ONETIME ONE Administration Hydromorphone HCl 1 mg 04/19/19 21:55 04/19/19 22:02 Dilaudid IVPUSH 04/19/19 21:56 1 mg ONETIME ONE Administration Hydromorphone HCl 0.5 mg 04/19/19 23:19 04/19/19 23:33 Dilaudid IVPUSH 04/19/19 23:20 0.5 mg ONETIME ONE Administration Hydromorphone HCl 1 mg 04/20/19 01:15 04/21/19 11:11 Dilaudid IVPUSH 1 mg Q2H PRN Administration Abdominal Pain Sodium Chloride 1,000 mls @ 999 mls/hr 04/19/19 20:15 04/19/19 20:25 Normal Saline IV 999 mls/hr ASDIRECTED CATHRYN Administration Sodium Chloride 1,000 mls @ 999 mls/hr 04/19/19 21:30 04/19/19 22:05 Normal Saline IV 999 mls/hr ASDIRECTED CATHRYN Administration Sodium Chloride 1,000 mls @ 500 mls/hr 04/19/19 23:15 04/19/19 23:23 Normal Saline IV 500 mls/hr ASDIRECTED CATHRYN Administration Levofloxacin/Dextrose 500 mg/ 100 mls @ 100 mls/hr 04/19/19 23:20 04/19/19 23 :32 Premix IV 04/20/19 00:19 100 mls/hr ONETIME ONE Administration Sodium Chloride 1,000 mls @ 250 mls/hr 04/20/19 00:30 04/20/19 03:02 Normal Saline IV 250 mls/hr ASDIRECTED CATHRYN Administration Sodium Chloride 1,000 mls @ 100 mls/hr 04/20/19 18:15 04/21/19 03:10 Normal Saline IV 100 mls/hr ASDIRECTED CATHRYN Administration Ketorolac Tromethamine 30 mg 04/19/19 20:55 04/19/19 21:02 Toradol IVPUSH 04/19/19 20:56 30 mg ONETIME ONE Administration Ketorolac Tromethamine 30 mg 04/20/19 03:00 04/21/19 08:26 Toradol IVPUSH 30 mg Q6H PRN Administration Pain (moderate 4-6) Ondansetron HCl 4 mg 04/19/19 20:06 04/19/19 20:27 Zofran IVPUSH 04/19/19 20:07 4 mg ONETIME ONE Administration Pantoprazole Sodium 40 mg 04/20/19 00:30 04/21/19 13:30 Protonix Iv IV Not Given Q12H CATHRYN Potassium Chloride 40 meq 04/21/19 10:00 04/21/19 10:23 Klor-Con M20 PO 04/21/19 10:01 40 meq ONETIME ONE Administration Potassium Chloride 40 meq 04/21/19 17:00 04/21/19 16:39 Klor-Con M20 PO 04/21/19 17:01 40 meq ONETIME ONE Administration Potassium Chloride 40 meq 04/22/19 09:00 04/22/19 10:35 Klor-Con M20 PO 04/22/19 09:01 40 meq ONETIME ONE Administration Potassium Chloride 40 meq 04/22/19 17:00 04/22/19 16:47 Klor-Con M20 PO 04/22/19 17:01 40 meq ONETIME ONE Administration Tamsulosin HCl 0.4 mg 04/19/19 21:55 04/19/19 22:01 Flomax PO 04/19/19 21:56 0.4 mg ONETIME ONE Administration - Re-Assessments/Exams Free Text/Narrative Re-Assessment/Exam: 04/19/19 23:34 pt has a very concentrated urine at 1.o30 . She has a urine that looks infected. Her lipase is elevated. A cat scan of the abdoman was obtained which showed some inflamation around the tail of the pancreas. She also has a stone in the left ureter 2-3 mm in the distal ureter. 01/12 07:21 Departure - Departure Time of Disposition: 23:38 Disposition: Admitted As Inpatient 67 Condition: Fair Clinical Impression: Ureteral stone, Dehydration UTI (urinary tract infection) Qualifiers: Urinary tract infection type: acute cystitis Hematuria presence: with hematuria Qualified Code(s): N30.01 - Acute cystitis with hematuria Pancreatitis Qualifiers: Chronicity: acute Pancreatitis type: unspecified pancreatitis type Acute pancreatitis complication: no infection or necrosis Qualified Code(s): K85.90 - Acute pancreatitis without necrosis or infection, unspecified - Discharge Information
[2019-04-19] MEDS ORDERED: Sodium Chloride 0.9% 1,000 ML IV SCH ×3 (20:15→23:15)
[2019-04-19] MEDS ORDERED: Ketorolac 30 MG/ML SDV IVPUSH ONE (20:55)
[2019-04-19] MEDS ORDERED: Tamsulosin 0.4 MG Cap.ER PO ONE (21:55)
--- NOTE | 2019-04-19 22:41 | CRLCT ---
HISTORY: Left flank pain. TECHNIQUE: Noncontrast CT abdomen and pelvis. COMPARISON: 04/10/2019. FINDINGS: There are small intrarenal calculi bilaterally. On the left, there is a 2-3 mm calculus within the distal ureter on image #130 of series 2. This likely reflects distal passage of the previously seen proximal left ureteral calculus. There is no left-sided hydronephrosis. No right ureteral calculus. Urinary bladder is nondistended. - There is no focal liver parenchymal abnormality. Gallbladder does not appear overly distended. Mild splenomegaly with the spleen measuring 14.2 cm transverse, similar to the prior CT. Adrenal glands are normal. There is slight haziness of the fat adjacent pancreatic tail on image #42 of series 2. Consider correlation with pancreatic enzymes to exclude pancreatitis. There is no pseudocyst. Pancreas is not well evaluated without contrast. - There is no small bowel obstruction. No appendicitis. Colonic diverticulosis without diverticulitis. Trace pelvic free fluid. No localized collection. No free air. No abdominal aortic aneurysm. Small retroperitoneal lymph nodes are stable. Small left inguinal lymph nodes are stable. - No consolidation within the lung bases nor pleural effusion. The small subpleural nodule within the left lower lobe lateral costophrenic angle measuring 6 mm in size on image #18 of series 2 is unchanged. - No acute bony abnormality. IMPRESSION: 1. 2-3 mm calculus within the distal left ureter. This likely relates to distal passage of previously seen proximal ureteral calculus. There is no left-sided hydronephrosis. There are additional small intrarenal calculi bilaterally. 2. Slight haziness of the fat adjacent pancreatic tail. Consider correlation with pancreatic enzymes to exclude subtle changes of pancreatitis. 3. Mild splenomegaly as before. 4. Trace pelvic free fluid. No localized collection. 5. Stable subpleural micro nodule left lower lobe. Dictated by Hiram Swann MD @ 04/19/2019 10:39:47 PM Please note that all CT scans at this facility use dose modulation, iterative reconstruction, and/or weight-based dosing when appropriate to reduce radiation dose to as low as reasonably achievable. Dictated by: Hiram Swann MD @ 04/19/2019 22:39:51 (Electronically Signed)
[2019-04-19] MEDS ORDERED: HYDROmorphone 0.5 MG/0.5 ML Syringe IVPUSH ONE (23:19)
[2019-04-19] MEDS ORDERED: Levofloxacin/Dextrose 5%-Water 500 MG in Premix Bag 1 BAG IV ONE (23:20)
--- NOTE | 2019-04-20 00:07 | PCM.HP.2 ---
H&P History of Present Illness - General Date of Service: 04/19/19 Source of Information: Patient History Limitations: Reports: No Limitations - History of Present Illness Initial Comments - Free Text/Narative: Patient is a 33yo female who presented to the ED with ULQ pain and Left flank pain. She says she was Dx with kidney stones recently, with stones on the Right side requiring a stent to be placed to further their passage. She also had a left sided stone that was asymptomatic. She says additionally she has had ULQ pain for about one week which has been worse after eating. She says she has never had the epigastric/ULQ pain in the past and isn't sure what it is. She says other than the OCPs and adderall she takes and the meds she has been taking for the kidney stones she has had no different medications recently. She also denies URQ pain. She says occasionally she has LLQ pain that started tonight. Onset of Symptoms: Reports: Gradual Symptom Onset Date: 04/13/19 Duration of Symptoms: Reports: Week(s):, Getting Worse Location: Reports: Abdomen Quality: Reports: Sharp, Stabbing Severity: Severe Improves with: Reports: Medication Worsens with: Reports: None Associated Symptoms: Reports: Nausea/Vomiting. Denies: Confusion, Chest Pain, Cough, Fever/Chills, Malaise, Rash, Shortness of Breath, Weakness Left Flank Pain Score (Numeric/FACES): 8 Abdomen Pain Score (Numeric/FACES): 8 - Related Data Allergies/Adverse Reactions: Allergies Allergy/AdvReac Type Severity Reaction Status Date / Time No Known Allergies Allergy Verified 04/19/19 19:44 Home Medications: Home Meds Ethinyl Estradiol/Drospirenone [Loryna 3 mg-0.02 mg Tablet] 1 each PO DAILY 02/11 [History] Gabapentin [Neurontin] 300 mg PO TID 03/04/18 [History] Amphetamine/Dextroamphetamine [Adderall] 15 mg PO BID@,04/03/19 [History] Tamsulosin [Flomax] 0.4 mg PO PCBREAKFAST cap.er 04/06/19 [Rx] Ciprofloxacin HCl [Cipro] 500 mg PO BID 04/19/19 [History] Potassium Chloride 20 meq PO BID 04/19/19 [History] valACYclovir [Valtrex] 1,000 mg PO BID 04/19/19 [History] Past Medical History HEENT History: Reports: Other (See Below) Other HEENT History: Dental Carries/Broken teeth Genitourinary History: Reports: Renal Calculus 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: , 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 Psychiatric History: Reports: ADHD, Anxiety - Past Surgical History Head Surgeries/Procedures: Reports: None HEENT Surgical History: Reports: Oral Surgery Female Surgical History: Reports: Kidney stone extraction Dermatological Surgical History: Reports: None Social & Family History - Family History Family Medical History: Unobtainable - Tobacco Use Smoking Status *Q: Current Every Day Smoker Years of Tobacco use: 15 Packs/Tins Daily: 0.5 - Caffeine Use Caffeine Use: Reports: Coffee - Recreational Drug Use Recreational Drug Use: No H&P Review of Systems - Review of Systems: Review Of Systems: See Below General: Reports: Decreased Appetite. Denies: Fever, Chills, Weight Loss HEENT: Reports: No Symptoms Pulmonary: Reports: No Symptoms Cardiovascular: Reports: No Symptoms Gastrointestinal: Reports: Abdominal Pain, Decreased Appetite, Nausea Genitourinary: Reports: Dysuria, Urgency, Flank Pain Musculoskeletal: Reports: No Symptoms Skin: Reports: No Symptoms Psychiatric: Reports: No Symptoms Neurological: Reports: No Symptoms Hematologic/Lymphatic: Reports: No Symptoms Immunologic: Reports: No Symptoms Exam - Exam Exam: See Below - Vital Signs Vital Signs: Last Vital Signs Temp 36.7 C 04/19/19 19:40 Pulse 82 04/19/19 23:06 Resp 18 04/19/19 23:06 BP 122/71 04/19/19 23:06 Pulse Ox 98 04/19/19 23:06 Weight: 115.4 kg - Exam General: Alert, Oriented, Cooperative HEENT: PERRLA, Conjunctiva Clear, EOMI, Mucosa Moist & [place], Nares Patent, Pupils Reactive Neck: Supple, Trachea Midline, Full Range of Motion Lungs: Clear to Auscultation, Normal Respiratory Effort. No: Rales, Rhonchi, Wheezing Cardiovascular: Regular Rate, Regular Rhythm, Normal S1, Normal S2. No: Irregular Rhythm, Systolic Murmur, Diastolic Murmur GI/Abdominal Exam: Normal Bowel Sounds, Soft, No Distention, No Mass, Tender ( Epigastric and ULQ) (Female) Exam: Deferred Rectal (Female) Exam: Deferred Back Exam: Normal Inspection, Full Range of Motion, CVA Tenderness (L) Extremities: Normal Inspection, No Pedal Edema Skin: Warm, Dry, Intact. No: Ecchymosis Neurological: Cranial Nerves Intact, Reflexes Equal Bilateral Neuro Extensive - Mental Status: Alert, Oriented x3, Normal Mood/Affect, Normal Cognition, Memory Intact Neuro Extensive - Motor, Sensory, Reflexes: CN II-XII Intact, Normal Gait, Normal Reflexes Psychiatric: Alert, Normal Affect, Normal Mood - Patient Data Lab Results Last 24 hrs: Laboratory Results - last 24 hr 04/19/19 04/19/19 04/19/19 Range/Units 20:20 20:20 20:27 WBC 9.9 (4.5-11.0) K/uL RBC 4.13 (3.30-5.50) M/uL Hgb 11.3 L D (12.0-15.0) g/dL Hct 36.0 (36.0-48.0) % MCV 87 (80-98) fL MCH 27 (27-31) pg MCHC 31 L (32-36) % Plt Count 423 H (150-400) K/uL Neut % (Auto) 39 (36-66) % Lymph % (Auto) 49 H (24-44) % Gregory % (Auto) 10 H (2-6) % Eos % (Auto) 2 (2-4) % Baso % (Auto) 1 (0-1) % Sodium 140 (140-148) mmol/L Potassium 4.0 (3.6-5.2) mmol/L Chloride 105 (100-108) mmol/L Carbon Dioxide 21 (21-32) mmol/L Anion Gap 13.6 (5.0-14.0) mmol/L BUN 15 (7-18) mg/dL Creatinine 0.8 (0.6-1.0) mg/dL Est Cr Clr Drug Dosing 90.84 mL/min Estimated GFR (MDRD) > 60 (>60) Glucose 167 H (74-106) mg/dL Calcium 9.1 D (8.5-10.1) mg/dL Total Bilirubin 0.4 (0.2-1.0) mg/dL AST 59 H (15-37) U/L ALT 79 H (12-78) U/L Alkaline Phosphatase 110 (46-116) U/L Total Protein 7.8 (6.4-8.2) g/dL Albumin 3.2 L (3.4-5.0) g/dL Globulin 4.6 H (2.3-3.5) g/dL Albumin/Globulin Ratio 0.7 L (1.2-2.2) Amylase (25-115) U/L Lipase (73-393) U/L Urine Color Yellow (YELLOW) Urine Appearance Cloudy A (CLEAR) Urine pH 6.5 (5.0-8.0) Ur Specific Langford >= 1.030 (1.008-1.030) Urine Protein 30 H (NEGATIVE) mg/dL Urine Glucose (UA) Negative (NEGATIVE) mg/dL Urine Ketones Trace H (NEGATIVE) mg/dL Urine Occult Blood Moderate H (NEGATIVE) Urine Nitrite Negative (NEGATIVE) Urine Bilirubin Small H (NEGATIVE) Urine Urobilinogen 1.0 (0.2-1.0) EU/dL Ur Leukocyte Esterase Trace H (NEGATIVE) Urine RBC 50-75 H (0-5) Urine WBC 5-10 H (0-5) Ur Epithelial Cells Many Amorphous Sediment Not seen Urine Bacteria Many Urine Mucus Numerous Urine HCG, Qual 04/19/19 04/19/19 Range/Units 20:30 21:27 WBC (4.5-11.0) K/uL RBC (3.30-5.50) M/uL Hgb (12.0-15.0) g/dL Hct (36.0-48.0) % MCV (80-98) fL MCH (27-31) pg MCHC (32-36) % Plt Count (150-400) K/uL Neut % (Auto) (36-66) % Lymph % (Auto) (24-44) % Gregory % (Auto) (2-6) % Eos % (Auto) (2-4) % Baso % (Auto) (0-1) % Sodium (140-148) mmol/L Potassium (3.6-5.2) mmol/L Chloride (100-108) mmol/L Carbon Dioxide (21-32) mmol/L Anion Gap (5.0-14.0) mmol/L BUN (7-18) mg/dL Creatinine (0.6-1.0) mg/dL Est Cr Clr Drug Dosing mL/min Estimated GFR (MDRD) (>60) Glucose (74-106) mg/dL Calcium (8.5-10.1) mg/dL Total Bilirubin (0.2-1.0) mg/dL AST (15-37) U/L ALT (12-78) U/L Alkaline Phosphatase (46-116) U/L Total Protein (6.4-8.2) g/dL Albumin (3.4-5.0) g/dL Globulin (2.3-3.5) g/dL Albumin/Globulin Ratio (1.2-2.2) Amylase 258 H (25-115) U/L Lipase 1640 H (73-393) U/L Urine Color (YELLOW) Urine Appearance (CLEAR) Urine pH (5.0-8.0) Ur Specific Lang[place] (1.008-1.030) Urine Protein (NEGATIVE) mg/dL Urine Glucose (UA) (NEGATIVE) mg/dL Urine Ketones (NEGATIVE) mg/dL Urine Occult Blood (NEGATIVE) Urine Nitrite (NEGATIVE) Urine Bilirubin (NEGATIVE) Urine Urobilinogen (0.2-1.0) EU/dL Ur Leukocyte Esterase (NEGATIVE) Urine RBC (0-5) Urine WBC (0-5) Ur Epithelial Cells Amorphous Sediment Urine Bacteria Urine Mucus Urine HCG, Qual Negative Result Diagrams: 04/19/19 20:20 04/19/19 20:20 Imaging Impressions Last 24 hrs: Laboratory Results WBC 9.9 K/uL (4.5-11.0) 04/19/19 20:20 RBC 4.13 M/uL (3.30-5.50) 04/19/19 20:20 Hgb 11.3 g/dL (12.0-15.0) L D 04/19/19 20:20 Hct 36.0 % (36.0-48.0) 04/19/19 20:20 MCV 87 fL (80-98) 04/19/19 20:20 MCH 27 pg (27-31) 04/19/19 20:20 MCHC 31 % (32-36) L 04/19/19 20:20 Plt Count 423 K/uL (150-400) H 04/19/19 20:20 Neut % (Auto) 39 % (36-66) 04/19/19 20:20 Lymph % (Auto) 49 % (24-44) H 04/19/19 20:20 Gregory % (Auto) 10 % (2-6) H 04/19/19 20:20 Eos % (Auto) 2 % (2-4) 04/19/19 20:20 Baso % (Auto) 1 % (0-1) 04/19/19 20:20 Sodium 140 mmol/L (140-148) 04/19/19 20:20 Potassium 4.0 mmol/L (3.6-5.2) 04/19/19 20:20 Chloride 105 mmol/L (100-108) 04/19/19 20:20 Carbon Dioxide 21 mmol/L (21-32) 04/19/19 20:20 Anion Gap 13.6 mmol/L (5.0-14.0) 04/19/19 20:20 BUN 15 mg/dL (7-18) 04/19/19 20:20 Creatinine 0.8 mg/dL (0.6-1.0) 04/19/19 20:20 Est Cr Clr Drug Dosing 90.84 mL/min 04/19/19 20:20 Estimated GFR (MDRD) > 60 (>60) 04/19/19 20:20 Glucose 167 mg/dL (74-106) H 04/19/19 20:20 Calcium 9.1 mg/dL (8.5-10.1) D 04/19/19 20:20 Total Bilirubin 0.4 mg/dL (0.2-1.0) 04/19/19 20:20 AST 59 U/L (15-37) H 04/19/19 20:20 ALT 79 U/L (12-78) H 04/19/19 20:20 Alkaline Phosphatase 110 U/L (46-116) 04/19/19 20:20 Total Protein 7.8 g/dL (6.4-8.2) 04/19/19 20:20 Albumin 3.2 g/dL (3.4-5.0) L 04/19/19 20:20 Globulin 4.6 g/dL (2.3-3.5) H 04/19/19 20:20 Albumin/Globulin Ratio 0.7 (1.2-2.2) L 04/19/19 20:20 Triglycerides 200 mg/dL (15-150) H 04/19/19 20:30 Amylase 258 U/L (25-115) H 04/19/19 20:30 Lipase 1640 U/L (73-393) H 04/19/19 20:30 Urine Color Yellow (YELLOW) 04/19/19 20:27 Urine Appearance Cloudy (CLEAR) A 04/19/19 20:27 Urine pH 6.5 (5.0-8.0) 04/19/19 20:27 Ur Specific Lang[place] >= 1.030 (1.008-1.030) 04/19/19 20:27 Urine Protein 30 mg/dL (NEGATIVE) H 04/19/19 20:27 Urine Glucose (UA) Negative mg/dL (NEGATIVE) 04/19/19 20: Urine Ketones Trace mg/dL (NEGATIVE) H 04/19/19 20:27 Urine Occult Blood Moderate (NEGATIVE) H 04/19/19 20:27 Urine Nitrite Negative (NEGATIVE) 04/19/19 20:27 Urine Bilirubin Small (NEGATIVE) H 04/19/19 20:27 Urine Urobilinogen 1.0 EU/dL (0.2-1.0) 04/19/19 20:27 Ur Leukocyte Esterase Trace (NEGATIVE) H 04/19/19 20:27 Urine RBC 50-75 (0-5) H 04/19/19 20:27 Urine WBC 5-10 (0-5) H 04/19/19 20:27 Ur Epithelial Cells Many 04/19/19 20:27 Amorphous Sediment Not seen 04/19/19 20:27 Urine Bacteria Many 04/19/19 20:27 Urine Mucus Numerous 04/19/19 20:27 Urine HCG, Qual Negative 04/19/19 21:27 - Problem List (1) Pancreatitis SNOMED Code(s): 26491327 ICD Code: K85.90 - ACUTE PANCREATITIS WITHOUT NECROSIS OR INFECTION, UNSP Status: Acute Priority: High Current Visit: Yes Onset Date: ~04/13/19 Problem Details: lipase >1000, CT evidence of pancreatitis, will continue IV fluids, will have patient NPO for 24hrs, pain controlled with IV dilaudid, will start PPI, will repeat labs in 8 hours Qualifiers: Chronicity: acute Pancreatitis type: unspecified pancreatitis type Acute pancreatitis complication: no infection or necrosis Qualified Code(s): K85.90 - Acute pancreatitis without necrosis or infection, unspecified (2) UTI (urinary tract infection) SNOMED Code(s): 91018876 ICD Code: N39.0 - URINARY TRACT INFECTION, SITE NOT SPECIFIED Status: Acute Current Visit: Yes Onset Date: ~04/15/19 Problem Details: Likely related to renal stones, will continue IV levoquin and fluids Qualifiers: Urinary tract infection type: acute cystitis Hematuria presence: with hematuria Qualified Code(s): N30.01 - Acute cystitis with hematuria (3) Ureteric stone SNOMED Code(s): 57782173 ICD Code: N20.1 - CALCULUS OF URETER Status: Acute Current Visit: Yes Onset Date: Unknown Problem Details: Will continue toradol, flomax, and IV fluids to facilitate passage of stone. (4) Dehydration SNOMED Code(s): 47080795 ICD Code: E86.0 - DEHYDRATION Status: Acute Current Visit: Yes Onset Date: Unknown Problem Details: Will continue IV fluids Problem List Initiated/Reviewed/Updated: Yes Orders Last 24hrs: Active Orders 24 hr Category Date Time Status CULTURE URINE [RM] Stat Lab 04/19/19 20:30 Received TRIGLYCERIDES [CHEM] Stat Lab 04/19/19 23:40 Ordered Levofloxacin/Dextrose 5%-Water [Levaquin in D5W 500 MG/ Med 04/19/19 23:20 Active 100 ML] 500 mg Premix Bag 1 bag IV ONETIME Sodium Chloride 0.9% [Normal Saline] 1,000 ml Med 04/19/19 20:15 Active IV ASDIRECTED Sodium Chloride 0.9% [Normal Saline] 1,000 ml Med 04/19/19 21:30 Active IV ASDIRECTED Sodium Chloride 0.9% [Normal Saline] 1,000 ml Med 04/19/19 23:15 Active IV ASDIRECTED Medication Orders Sodium Chloride (Normal Saline) 1,000 mls @ 999 mls/hr IV ASDIRECTED CATHRYN Last Admin: 04/19/19 20:25 Dose: 999 mls/hr Sodium Chloride (Normal Saline) 1,000 mls @ 999 mls/hr IV ASDIRECTED CATHRYN Last Admin: 04/19/19 22:05 Dose: 999 mls/hr Sodium Chloride (Normal Saline) 1,000 mls @ 500 mls/hr IV ASDIRECTED CATHRYN Last Admin: 04/19/19 23:23 Dose: 500 mls/hr Levofloxacin/Dextrose 500 mg/ (Premix) 100 mls @ 100 mls/hr IV ONETIME ONE Stop: 04/20/19 00:19 Last Admin: 04/19/19 23:32 Dose: 100 mls/hr Resuscitation Status 04/20/19 00:17 Resuscitation Status Routine Resuscitation Status: Full Code Abbreviations used in this policy: *Cardiopulmonary Resuscitation (CPR) *Do Not Resuscitate (DNR) *Do Not Intubate (DNI) Code status categories recognized at [facility] 1. Full Code a. If a patient experiences cardiac or respiratory arrest, all resuscitation efforts (including CPR, defibrillation, and airway management) will be performed. b. Patients without a specific code status order other than Full Code will be assumed to be Full Code Status. Intubation CPR Defibrillation YES YES YES 2. DNR a. If there are changes in the patients' vital signs and condition, including respiratory arrest, treatment with medications and intubation, if indicated will be performed. b. If a patient experiences cardiac arrest, resuscitation efforts (CPR and Defibrillation) will not be performed. Intubation CPR Defibrillation YES NO NO 3. DNR/DNI a. If there are changes in the patient's vital signs and condition, including respiratory arrest, treatment with medications and noninvasive airway management/positive pressure ventilation, if indicated will be performed b. If a patient experiences a cardiac arrest, resuscitation efforts ( including CPR, defibrillation and intubation) will not be performed. Intubation CPR Defibrillation NO NO NO 4. DNR/DNI/Comfort Measures a. All medical and nursing interventions will be for the sole purpose of providing pain/symptom management for the patient. b. If a patient experiences a cardiac or respiratory arrest, resuscitation efforts (including CPR, defibrillation and intubation) will not be performed. Intubation CPR Defibrillation No NO NO ACTIVE MED ORDERS Generic Name Dose Route Start Last Admin Trade Name Freq PRN Reason Stop Dose Admin Hydromorphone HCl 1 mg 04/20/19 00:30 Dilaudid IVPUSH Q2H PRN Abdominal Pain Sodium Chloride 1,000 mls @ 999 mls/hr 04/19/19 20:15 04/19/19 20:25 Normal Saline IV 999 mls/hr ASDIRECTED CATHRYN Administration Sodium Chloride 1,000 mls @ 999 mls/hr 04/19/19 21:30 04/19/19 22:05 Normal Saline IV 999 mls/hr ASDIRECTED CATHRYN Administration Sodium Chloride 1,000 mls @ 500 mls/hr 04/19/19 23:15 04/19/19 23:23 Normal Saline IV 500 mls/hr ASDIRECTED CATHRYN Administration Sodium Chloride 1,000 mls @ 250 mls/hr 04/20/19 00:30 Normal Saline IV ASDIRECTED CATHRYN Ketorolac Tromethamine 30 mg 04/20/19 00:17 Toradol IVPUSH Q6H PRN Pain (moderate 4-6) Nicotine 14 mg 04/20/19 00:30 Habitrol TRDERM DAILY CATHRYN Ondansetron HCl 4 mg 04/20/19 00:17 Zofran IV Q4H PRN Nausea/Vomiting Pantoprazole Sodium 40 mg 04/20/19 00:30 Protonix Iv IV Q12H CATHRYN ACTIVE NON-MED ORDERS/Dietary 04/20/19 Breakfast Nothing per Oral Now Diet [DIET] ACTIVE NON-MED ORDERS/Care 04/20/19 00:17 Oxygen Therapy [RC] PRN Maintain SpO2% greater than: 92 Oxygen Therapy Mode, Primary: Nasal Cannula Oxygen Flow Rate (L/min): 2 Oxygen Therapy Mode, Secondary: Nasal Cannula Flow Rate (L/min), Secondary: 4 VTE/DVT Education [RC] Per Unit Routine Vital Signs [RC] Q2H ACTIVE NON-MED ORDERS/Orderable Interventions Education: VTE/DVT Topics Start: 04/20/19 00: 17 Freq: Per Unit Routine Status: Active Protocol: Oxygen Therapy Start: 04/20/19 00: 17 Freq: PRN Status: Active Protocol: Vital Signs Start: 04/20/19 00: 17 Freq: Q2H Status: Active Protocol: VS.TEMP ACTIVE NON-MED ORDERS/LAB 04/19/19 20:30 CULTURE URINE [RM] Stat Comment: Department: ER [facility] Source: Urine, Bladder Specimen: Has been collected Specimen Description: 04/20/19 07:00 CBC WITH AUTO DIFF [HEME] Routine Comment: Specimen: Send someone from the department to collect COMPREHENSIVE METABOLIC PN,CMP [CHEM] Routine Comment: Specimen: Send someone from the department to collect LIPID PANEL [CHEM] Routine Comment: Specimen: Send someone from the department to collect MAGNESIUM [CHEM] Routine Comment: Specimen: Send someone from the department to collect ACTIVE ORDERS/MEDS 04/19/19 20:15 Sodium Chloride 0.9% [Normal Saline] 1,000 ml IV ASDIRECTED 04/19/19 21:30 Sodium Chloride 0.9% [Normal Saline] 1,000 ml IV ASDIRECTED 04/19/19 23:15 Sodium Chloride 0.9% [Normal Saline] 1,000 ml IV ASDIRECTED 04/20/19 00:17 Ketorolac [Toradol] 30 mg IVPUSH Q6H PRN Ondansetron [Zofran] 4 mg IV Q4H PRN 04/20/19 00:30 HYDROmorphone [Dilaudid] 1 mg IVPUSH Q2H PRN Nicotine [Habitrol] 14 mg TRDERM DAILY Pantoprazole [ProTONIX IV] 40 mg IV Q12H Sodium Chloride 0.9% [Normal Saline] 1,000 ml IV ASDIRECTED ACTIVE NON-MED ORDERS/Transfer 04/20/19 00:29 Patient Status Manage Transfer [TRANSFER] Routine Patient Status: Admit to Inpatient Admission Diagnosis/Problem: Pancreatitis Reason for Admit: pancreatitis, intractible pain Nurse Unit Type: Medical-Surgical Admitting Physician: Lynette Lozoya Attending Physician: Tavares Venegas ACTIVE NON-MED ORDERS/Other 04/20/19 00:17 Patient Status [ADT] Routine Patient Status: Admit to Inpatient Admission Diagnosis/Problem: Pancreatitis Reason for Admit: Pancreatitis, intractible pain Nurse Unit Type: Medical-Surgical Admitting Physician: Lynette Lozoya Attending Physician: Tavares Venegas Assessment/Plan Comment:: Will continue pain medications, NPO status, aggressive IV fluids, levoquin for UTI, anti-emetics, and PPI for prophylaxis. Will recheck labs in AM. Patient is aware of her condition and understands the risks and benefits of her plan of care and is in agreement with this plan of care. - Mortality Measure Prognosis:: Good
[2019-04-20] MEDS ORDERED: Sodium Chloride 0.9% 1,000 ML IV SCH ×2 (00:30→18:15)
[2019-04-20] MEDS ORDERED: Promethazine 12.5 MG in Sodium Chloride 0.9% 50 ML IV PRN (00:39)
[2019-04-20] MEDS: Ondansetron 4 MG/2 ML SDV IV PRN ×3 (01:04→11:40)
[2019-04-20] MEDS: Pantoprazole 40 MG Vial IV SCH ×3 (01:05→23:30)
[2019-04-20] MEDS: Nicotine 14 MG/24 Hr Patch TRDERM SCH ×2 (01:05→10:20)
[2019-04-20] MEDS: HYDROmorphone 1 MG/ML Syringe IVPUSH PRN ×10 (01:05→23:27)
[2019-04-20] MEDS: Ketorolac 30 MG/ML SDV IVPUSH PRN ×2 (13:39→19:50)
--- NOTE | 2019-04-20 16:05 | PCM.PN ---
- General Info Date of Service: 04/20/19 Subjective Update: Ms. Jose is a 33-year-old woman admitted through the emergency department with upper abdominal pain and nausea secondary to pancreatitis. She was hospitalized at this facility last week with ureteral colic and infection. She did not pass the stone and continued to experience pain so she was transferred to a tertiary care center for urology consult. Stent was placed and she was discharged home on oral antibiotic therapy. She did well until yesterday when she noted pain in her left upper quadrant of the abdomen. CT scan obtained in the emergency department showed a small stone in the left ureter as well as mild peripancreatic inflammation. Lipase level was found to be elevated at 1600 and she was felt to have probable pancreatitis causing her left upper quadrant abdominal pain and nausea. Since admission her pain has persisted. Abdominal ultrasound shows no evidence of gallbladder disease, common duct is slightly elevated in size. She denies any previous history of pancreatitis and also denies recent alcohol use. She had been on control pills but has not taken them now over the past 2 months. Other medications were reviewed and show no obvious potential cause of pancreatitis. Bilirubin level and alkaline phosphatase are within normal range. Functional Status: Reports: Ambulating, Urinating - Review of Systems General: Denies: Fever, Chills Pulmonary: Reports: No Symptoms Cardiovascular: Reports: No Symptoms Gastrointestinal: Reports: Abdominal Pain, Decreased Appetite, Nausea. Denies: Constipation, Diarrhea, Vomiting Genitourinary: Reports: No Symptoms - Patient Data Vitals - Most Recent: Last Vital Signs Temp 98.1 F 04/20/19 10:33 Pulse 83 04/20/19 10:33 Resp 18 04/20/19 10:33 BP 145/81 H 04/20/19 10:33 Pulse Ox 96 04/20/19 10:33 Weight - Most Recent: 259 lb I&O - Last 24 Hours: Intake & Output 04/20/19 04/20/19 04/20/19 06:59 14:59 22:59 Intake Total 900 Balance 900 Lab Results Last 24 Hours: Laboratory Results - last 24 hr 04/19/19 04/19/19 04/19/19 Range/Units 20:20 20:20 20:27 WBC 9.9 (4.5-11.0) K/uL RBC 4.13 (3.30-5.50) M/uL Hgb 11.3 L D (12.0-15.0) g/dL Hct 36.0 (36.0-48.0) % MCV 87 (80-98) fL MCH 27 (27-31) pg MCHC 31 L (32-36) % Plt Count 423 H (150-400) K/uL Neut % (Auto) 39 (36-66) % Lymph % (Auto) 49 H (24-44) % Eddy % (Auto) 10 H (2-6) % Eos % (Auto) 2 (2-4) % Baso % (Auto) 1 (0-1) % Sodium 140 (140-148) mmol/L Potassium 4.0 (3.6-5.2) mmol/L Chloride 105 (100-108) mmol/L Carbon Dioxide 21 (21-32) mmol/L Anion Gap 13.6 (5.0-14.0) mmol/L BUN 15 (7-18) mg/dL Creatinine 0.8 (0.6-1.0) mg/dL Est Cr Clr Drug Dosing 90.84 mL/min Estimated GFR (MDRD) > 60 (>60) Glucose 167 H (74-106) mg/dL Calcium 9.1 D (8.5-10.1) mg/dL Magnesium (1.8-2.4) mg/dL Total Bilirubin 0.4 (0.2-1.0) mg/dL AST 59 H (15-37) U/L ALT 79 H (12-78) U/L Alkaline Phosphatase 110 (46-116) U/L Total Protein 7.8 (6.4-8.2) g/dL Albumin 3.2 L (3.4-5.0) g/dL Globulin 4.6 H (2.3-3.5) g/dL Albumin/Globulin Ratio 0.7 L (1.2-2.2) Triglycerides (15-150) mg/dL Cholesterol (0-200) mg/dL LDL Cholesterol Direct (0-100) mg/dL HDL Cholesterol (40-60) mg/dL Amylase (25-115) U/L Lipase (73-393) U/L Urine Color Yellow (YELLOW) Urine Appearance Cloudy A (CLEAR) Urine pH 6.5 (5.0-8.0) Ur Specific [place] >= 1.030 (1.008-1.030) Urine Protein 30 H (NEGATIVE) mg/dL Urine Glucose (UA) Negative (NEGATIVE) mg/dL Urine Ketones Trace H (NEGATIVE) mg/dL Urine Occult Blood Moderate H (NEGATIVE) Urine Nitrite Negative (NEGATIVE) Urine Bilirubin Small H (NEGATIVE) Urine Urobilinogen 1.0 (0.2-1.0) EU/dL Ur Leukocyte Esterase Trace H (NEGATIVE) Urine RBC 50-75 H (0-5) Urine WBC 5-10 H (0-5) Ur Epithelial Cells Many Amorphous Sediment Not seen Urine Bacteria Many Urine Mucus Numerous Urine HCG, Qual 04/19/19 04/19/19 04/19/19 Range/Units 20:30 20:30 21:27 WBC (4.5-11.0) K/uL RBC (3.30-5.50) M/uL Hgb (12.0-15.0) g/dL Hct (36.0-48.0) % MCV (80-98) fL MCH (27-31) pg MCHC (32-36) % Plt Count (150-400) K/uL Neut % (Auto) (36-66) % Lymph % (Auto) (24-44) % Eddy % (Auto) (2-6) % Eos % (Auto) (2-4) % Baso % (Auto) (0-1) % Sodium (140-148) mmol/L Potassium (3.6-5.2) mmol/L Chloride (100-108) mmol/L Carbon Dioxide (21-32) mmol/L Anion Gap (5.0-14.0) mmol/L BUN (7-18) mg/dL Creatinine (0.6-1.0) mg/dL Est Cr Clr Drug Dosing mL/min Estimated GFR (MDRD) (>60) Glucose (74-106) mg/dL Calcium (8.5-10.1) mg/dL Magnesium (1.8-2.4) mg/dL Total Bilirubin (0.2-1.0) mg/dL AST (15-37) U/L ALT (12-78) U/L Alkaline Phosphatase (46-116) U/L Total Protein (6.4-8.2) g/dL Albumin (3.4-5.0) g/dL Globulin (2.3-3.5) g/dL Albumin/Globulin Ratio (1.2-2.2) Triglycerides 200 H (15-150) mg/dL Cholesterol (0-200) mg/dL LDL Cholesterol Direct (0-100) mg/dL HDL Cholesterol (40-60) mg/dL Amylase 258 H (25-115) U/L Lipase 1640 H (73-393) U/L Urine Color (YELLOW) Urine Appearance (CLEAR) Urine pH (5.0-8.0) Ur Specific [place] (1.008-1.030) Urine Protein (NEGATIVE) mg/dL Urine Glucose (UA) (NEGATIVE) mg/dL Urine Ketones (NEGATIVE) mg/dL Urine Occult Blood (NEGATIVE) Urine Nitrite (NEGATIVE) Urine Bilirubin (NEGATIVE) Urine Urobilinogen (0.2-1.0) EU/dL Ur Leukocyte Esterase (NEGATIVE) Urine RBC (0-5) Urine WBC (0-5) Ur Epithelial Cells Amorphous Sediment Urine Bacteria Urine Mucus Urine HCG, Qual Negative 04/20/19 04/20/19 Range/Units 06:46 06:46 WBC 7.6 (4.5-11.0) K/uL RBC 3.59 (3.30-5.50) M/uL Hgb 9.9 L (12.0-15.0) g/dL Hct 32.1 L (36.0-48.0) % MCV 89 (80-98) fL MCH 28 (27-31) pg MCHC 31 L (32-36) % Plt Count 330 (150-400) K/uL Neut % (Auto) 28 L (36-66) % Lymph % (Auto) 57 H (24-44) % Eddy % (Auto) 11 H (2-6) % Eos % (Auto) 3 (2-4) % Baso % (Auto) 1 (0-1) % Sodium 141 (140-148) mmol/L Potassium 3.8 (3.6-5.2) mmol/L Chloride 109 H (100-108) mmol/L Carbon Dioxide 22 (21-32) mmol/L Anion Gap 13.8 (5.0-14.0) mmol/L BUN 13 (7-18) mg/dL Creatinine 0.7 (0.6-1.0) mg/dL Est Cr Clr Drug Dosing 103.82 mL/min Estimated GFR (MDRD) > 60 (>60) Glucose 105 (74-106) mg/dL Calcium 7.9 L (8.5-10.1) mg/dL Magnesium 1.8 (1.8-2.4) mg/dL Total Bilirubin 0.2 (0.2-1.0) mg/dL AST 33 (15-37) U/L ALT 62 (12-78) U/L Alkaline Phosphatase 90 (46-116) U/L Total Protein 6.4 (6.4-8.2) g/dL Albumin 2.7 L (3.4-5.0) g/dL Globulin 3.7 H (2.3-3.5) g/dL Albumin/Globulin Ratio 0.7 L (1.2-2.2) Triglycerides 194 H (15-150) mg/dL Cholesterol 160 (0-200) mg/dL LDL Cholesterol Direct 88 (0-100) mg/dL HDL Cholesterol 32 L (40-60) mg/dL Amylase (25-115) U/L Lipase (73-393) U/L Urine Color (YELLOW) Urine Appearance (CLEAR) Urine pH (5.0-8.0) Ur Specific [place] (1.008-1.030) Urine Protein (NEGATIVE) mg/dL Urine Glucose (UA) (NEGATIVE) mg/dL Urine Ketones (NEGATIVE) mg/dL Urine Occult Blood (NEGATIVE) Urine Nitrite (NEGATIVE) Urine Bilirubin (NEGATIVE) Urine Urobilinogen (0.2-1.0) EU/dL Ur Leukocyte Esterase (NEGATIVE) Urine RBC (0-5) Urine WBC (0-5) Ur Epithelial Cells Amorphous Sediment Urine Bacteria Urine Mucus Urine HCG, Qual Med Orders - Current: Current Medications Hydromorphone HCl (Dilaudid) 1 mg IVPUSH Q2H PRN PRN Reason: Abdominal Pain Last Admin: 04/20/19 12:28 Dose: 1 mg Sodium Chloride (Normal Saline) 1,000 mls @ 250 mls/hr IV ASDIRECTED CATHRYN Last Admin: 04/20/19 03:02 Dose: 250 mls/hr Promethazine HCl 12.5 mg/ (Sodium Chloride) 50.5 mls @ 200 mls/hr IV Q6H PRN PRN Reason: Nausea/Vomiting Last Admin: 04/20/19 08:20 Dose: 200 mls/hr Ketorolac Tromethamine (Toradol) 30 mg IVPUSH Q6H PRN PRN Reason: Pain (moderate 4-6) Last Admin: 04/20/19 13:39 Dose: 30 mg Nicotine (Habitrol) 14 mg TRDERM DAILY [facility] Last Admin: 04/20/19 10:20 Dose: Not Given Ondansetron HCl (Zofran) 4 mg IV Q4H PRN PRN Reason: Nausea/Vomiting Last Admin: 04/20/19 11:40 Dose: 4 mg Pantoprazole Sodium (Protonix Iv) 40 mg IV Q12H [facility] Last Admin: 04/20/19 11:48 Dose: 40 mg Discontinued Medications Hydromorphone HCl (Dilaudid) 1 mg IVPUSH ONETIME ONE Stop: 04/19/19 20:08 Last Admin: 04/19/19 20:28 Dose: 1 mg Hydromorphone HCl (Dilaudid) 1 mg IVPUSH ONETIME ONE Stop: 04/19/19 21:56 Last Admin: 04/19/19 22:02 Dose: 1 mg Hydromorphone HCl (Dilaudid) 0.5 mg IVPUSH ONETIME ONE Stop: 04/19/19 23:20 Last Admin: 04/19/19 23:33 Dose: 0.5 mg Sodium Chloride (Normal Saline) 1,000 mls @ [facility] Admin: 04/19/19 20:25 Dose: 999 mls/hr Sodium Chloride (Normal Saline) 1,000 mls @ 999 mls/hr IV [facility] Last Admin: 04/19/19 22:05 Dose: 999 mls/hr Sodium Chloride (Normal Saline) 1,000 mls @ [facility] Last Admin: 04/19/19 23:23 Dose: 500 mls/hr Levofloxacin/Dextrose 500 mg/ (Premix) 100 mls @ 100 mls/hr IV ONETIME ONE Stop: 04/20/19 00:19 Last Admin: 04/19/19 23:32 Dose: 100 mls/hr Ketorolac Tromethamine (Toradol) 30 mg IVPUSH ONETIME ONE Stop: 04/19/19 20:56 Last Admin: 04/19/19 21:02 Dose: 30 mg Ondansetron HCl (Zofran) 4 mg IVPUSH ONETIME ONE Stop: 04/19/19 20:07 Last Admin: 04/19/19 20:27 Dose: 4 mg Tamsulosin HCl (Flomax) 0.4 mg PO ONETIME ONE Stop: 04/19/19 21:56 Last Admin: 04/19/19 22:01 Dose: 0.4 mg - Exam General: Alert, Oriented, Cooperative, Mild Distress Neck: Supple Lungs: Clear to Auscultation, Normal Respiratory Effort Cardiovascular: Regular Rate, Regular Rhythm, No Murmurs GI/Abdominal Exam: Soft, No Organomegaly, Tender. No: Distended, Guarding, Rigid, Rebound Extremities: Non-Tender, No Pedal Edema - Problem List Review Problem List Initiated/Reviewed/Updated: Yes - My Orders Last 24 Hours: My Active Orders 04/20/19 12:32 Abdomen Comp [US] Stat 04/21/19 05:00 COMPREHENSIVE METABOLIC PN,CMP [CHEM] Timed LIPASE [CHEM] Timed - Plan Plan:: ASSESSMENT AND PLAN PANCREATITIS-specific etiology not apparent, no obvious medication effect, significant alcohol use, or common duct stone. -Nothing by mouth -IV fluids for hydration -Reassess lipase level in a.m. LEFT URETERAL STONE-noted in the distal ureter on CT scan. Previous stones and hydronephrosis were on the right, status post stent placement MAINTENANCE ISSUES -DVT prophylaxis; not indicated -GI prophylaxis; not indicated -Zuniga catheter; not indicated -Nutrition; nothing by mouth -Nicotine dependence; not required CODE STATUS-FULL CODE ADMISSION STATUS-patient will be admitted to inpatient status, expect at least a 2 night hospital stay for evaluation and management of problems as outlined above. At the time of this admission I do not reasonably expected evaluation and management of this problem will require more than a 96 hour hospital stay. DISPOSITION-anticipate discharge to home after the hospital stay. PRIMARY CARE PROVIDER-Linda Garzon
--- NOTE | 2019-04-20 18:13 | CRLUS ---
Indication: Pancreatitis. Technique: Grayscale and color Doppler does sound of the right upper quadrant was performed. Comparison: CT scan of the abdomen and pelvis from yesterday. Findings: The liver is homogeneous in echotexture measuring 17.9 cm in maximum dimension. No intrahepatic masses or intrahepatic biliary ductal dilatation is identified. The portal vein is patent. The gallbladder is normal. No stones or sludge are identified. The sonographic Figueroa sign is not present. The gallbladder wall measures 2 mm in size. The common bile duct measures 7 mm. The visualized portions of the pancreas are grossly normal. No masses or cysts are identified within the pancreas. Right kidney measures 12.4 x 6.2 x 5.2 cm in size. The cortex measures 1.6 cm in size. Normal color flow was identified to the right kidney. No hydronephrosis is identified. The left kidney measures 12.9 x 5.0 x 5.4 cm in size. The cortex measures 2.0 cm in size. No hydronephrosis is identified. Normal color flow is identified to the left kidney. The spleen measures 13.8 x 4.5 x 10.5 cm in size. No free fluid is identified within the abdomen or pelvis Impression: Limited visualization of the pancreas. The spleen is at the upper limits of normal in size to mildly dilated. Minimal dilatation of the common bile duct. Otherwise, grossly normal ultrasound of the abdomen. Dictated by Shannon Noyola MD @ Apr 20 2019 6:08PM Signed by Dr. Shannon Noyola @ Apr 20 2019 6:12PM
[2019-04-21] MEDS: HYDROmorphone 1 MG/ML Syringe IVPUSH PRN ×3 (01:47→11:11)
[2019-04-21] MEDS: Ketorolac 30 MG/ML SDV IVPUSH PRN ×2 (03:10→08:26)
[2019-04-21] MEDS: Ondansetron 4 MG/2 ML SDV IV PRN (06:46)
[2019-04-21] MEDS ORDERED: Potassium Chloride 20 MEQ Tab.ER PO ONE ×2 (10:00→17:00)
[2019-04-21] MEDS: Nicotine 14 MG/24 Hr Patch TRDERM SCH (10:22)
[2019-04-21] MEDS: oxyCODONE 5 MG Tab PO PRN ×3 (13:30→22:55)
[2019-04-21] MEDS: Pantoprazole 40 MG Vial IV SCH (13:30)
--- NOTE | 2019-04-21 13:30 | PCM.PN ---
- General Info Date of Service: 04/21/19 Subjective Update: Ms. Jose has improved since admission, continues to experience some pain in the upper left abdomen, not as severe as on admission. Lipase level has improved but not yet normalized. Functional Status: Reports: Pain Controlled, Ambulating, Urinating - Review of Systems General: Reports: Weakness. Denies: Fever, Chills Pulmonary: Reports: No Symptoms Cardiovascular: Reports: No Symptoms Gastrointestinal: Reports: Abdominal Pain, Nausea. Denies: Constipation, Diarrhea, Difficulty Swallowing, Vomiting - Patient Data Vitals - Most Recent: Last Vital Signs Temp 98.7 F 04/21/19 13:27 Pulse 76 04/21/19 13:27 Resp 16 04/21/19 13:27 BP 147/93 H 04/21/19 13:27 Pulse Ox 99 04/21/19 13:27 Weight - Most Recent: 259 lb I&O - Last 24 Hours: Intake & Output 04/20/19 04/21/19 04/21/19 22:59 06:59 14:59 Intake Total 494 765 Balance 494 765 Lab Results Last 24 Hours: Laboratory Results - last 24 hr 04/21/19 Range/Units 06:07 Sodium 140 (140-148) mmol/L Potassium 3.4 L (3.6-5.2) mmol/L Chloride 107 (100-108) mmol/L Carbon Dioxide 21 (21-32) mmol/L Anion Gap 15.4 H (5.0-14.0) mmol/L BUN 7 (7-18) mg/dL Creatinine 0.7 (0.6-1.0) mg/dL Est Cr Clr Drug Dosing 103.82 mL/min Estimated GFR (MDRD) > 60 (>60) Glucose 90 (74-106) mg/dL Calcium 8.1 L (8.5-10.1) mg/dL Total Bilirubin 0.4 D (0.2-1.0) mg/dL AST 35 (15-37) U/L ALT 59 (12-78) U/L Alkaline Phosphatase 95 (46-116) U/L Total Protein 6.2 L (6.4-8.2) g/dL Albumin 2.7 L (3.4-5.0) g/dL Globulin 3.5 (2.3-3.5) g/dL Albumin/Globulin Ratio 0.8 L (1.2-2.2) Lipase 942 H (73-393) U/L Callum Results Last 24 Hours: Microbiology 04/19/19 20:30 Urine Culture - Preliminary Urine, Bladder MIXED POSITIVE SAUL DAY 1 Med Orders - Current: Current Medications Promethazine HCl 12.5 mg/ (Sodium Chloride) 50.5 mls @ 200 mls/hr IV Q6H PRN PRN Reason: Nausea/Vomiting Last Admin: 04/20/19 08:20 Dose: 200 mls/hr Nicotine (Habitrol) 14 mg TRDERM DAILY [facility] Last Admin: 04/21/19 10:22 Dose: 14 mg Ondansetron HCl (Zofran) 4 mg IV Q4H PRN PRN Reason: Nausea/Vomiting Last Admin: 04/21/19 06:46 Dose: 4 mg Oxycodone HCl (Oxycodone) 5 mg PO Q4H PRN PRN Reason: Pain Pantoprazole Sodium (Protonix) 40 mg PO DAILY@0730 [facility] Potassium Chloride (Klor-Con M20) 40 meq PO ONETIME ONE Stop: 04/21/19 17:01 Discontinued Medications Hydromorphone HCl (Dilaudid) 1 mg IVPUSH ONETIME ONE Stop: 04/19/19 20:08 Last Admin: 04/19/19 20:28 Dose: 1 mg Hydromorphone HCl (Dilaudid) 1 mg IVPUSH ONETIME ONE Stop: 04/19/19 21:56 Last Admin: 04/19/19 22:02 Dose: 1 mg Hydromorphone HCl (Dilaudid) 0.5 mg IVPUSH ONETIME ONE Stop: 04/19/19 23:20 Last Admin: 04/19/19 23:33 Dose: 0.5 mg Hydromorphone HCl (Dilaudid) 1 mg IVPUSH Q2H PRN PRN Reason: Abdominal Pain Last Admin: 04/21/19 11:11 Dose: 1 mg Sodium Chloride (Normal Saline) 1,000 mls @ 999 mls/hr IV ASDIRECTED [facility] Last Admin: 04/19/19 20:25 Dose: 999 mls/hr Sodium Chloride (Normal Saline) 1,000 mls @ 999 mls/hr IV ASDIRECTED [facility] Last Admin: 04/19/19 22:05 Dose: 999 mls/hr Sodium Chloride (Normal Saline) 1,000 mls @ 500 mls/hr IV ASDIRECTED [facility] Last Admin: 04/19/19 23:23 Dose: 500 mls/hr Levofloxacin/Dextrose 500 mg/ (Premix) 100 mls @ 100 mls/hr IV ONETIME ONE Stop: 04/20/19 00:19 Last Admin: 04/19/19 23:32 Dose: 100 mls/hr Sodium Chloride (Normal Saline) 1,000 mls @ 250 mls/hr IV ASDIRECTED [facility] Last Admin: 04/20/19 03:02 Dose: 250 mls/hr Sodium Chloride (Normal Saline) 1,000 mls @ 100 mls/hr IV ASDIRECTED [facility] Last Admin: 04/21/19 03:10 Dose: 100 mls/hr Ketorolac Tromethamine (Toradol) 30 mg IVPUSH ONETIME ONE Stop: 04/19/19 20:56 Last Admin: 04/19/19 21:02 Dose: 30 mg Ketorolac Tromethamine (Toradol) 30 mg IVPUSH Q6H PRN PRN Reason: Pain (moderate 4-6) Last Admin: 04/21/19 08:26 Dose: 30 mg Ondansetron HCl (Zofran) 4 mg IVPUSH ONETIME ONE Stop: 04/19/19 20:07 Last Admin: 04/19/19 20:27 Dose: 4 mg Pantoprazole Sodium (Protonix Iv) 40 mg IV Q12H [facility] Last Admin: 04/20/19 23:30 Dose: 40 mg Potassium Chloride (Klor-Con M20) 40 meq PO ONETIME ONE Stop: 04/21/19 10:01 Last Admin: 04/21/19 10:23 Dose: 40 meq Tamsulosin HCl (Flomax) 0.4 mg PO ONETIME ONE Stop: 04/19/19 21:56 Last Admin: 04/19/19 22:01 Dose: 0.4 mg - Exam Quality Assessment: DVT Prophylaxis General: Alert, Oriented, Cooperative, Mild Distress Lungs: Clear to Auscultation, Normal Respiratory Effort Cardiovascular: Regular Rate, Regular Rhythm, No Murmurs GI/Abdominal Exam: Soft, No Organomegaly, Tender. No: Distended, Guarding, Rigid, Rebound Extremities: Non-Tender, No Pedal Edema Skin: Warm, Dry, Intact - Problem List Review Problem List Initiated/Reviewed/Updated: Yes - My Orders Last 24 Hours: My Active Orders 04/20/19 23:50 SCD [Sequential Compression Device] [OM.PC] Routine 04/21/19 13:15 oxyCODONE 5 mg PO Q4H PRN Convert IV to Saline Lock [OM.PC] Routine 04/21/19 17:00 Potassium Chloride [Klor-Con M20] 40 meq PO ONETIME ONE 04/21/19 Lunch Clear Liquid Diet [DIET] 04/22/19 05:00 LIPASE [CHEM] Timed POTASSIUM,K [CHEM] Timed 04/22/19 07:30 Pantoprazole [ProTONIX] 40 mg PO DAILY@0730 - Plan Plan:: ASSESSMENT AND PLAN PANCREATITIS-specific etiology not apparent, no obvious medication effect, significant alcohol use, or common duct stone. Moderately improved over the last few days with less pain and nausea. Lipase level has improved to 940. -Liquid diet -Saline lock IV -Reassess lipase level in a.m. LEFT URETERAL STONE-noted in the distal ureter on CT scan. Previous stones and hydronephrosis were on the right, status post stent placement MAINTENANCE ISSUES -DVT prophylaxis; not indicated -GI prophylaxis; not indicated -Zuniga catheter; not indicated -Nutrition; nothing by mouth -Nicotine dependence; not required CODE STATUS-FULL CODE ADMISSION STATUS-patient will be admitted to inpatient status, expect at least a 2 night hospital stay for evaluation and management of problems as outlined above. At the time of this admission I do not reasonably expected evaluation and management of this problem will require more than a 96 hour hospital stay. DISPOSITION-anticipate discharge to home after the hospital stay. PRIMARY CARE PROVIDER-Linda Garzon
[2019-04-22] MEDS: oxyCODONE 5 MG Tab PO PRN ×5 (04:06→21:08)
[2019-04-22] MEDS: Pantoprazole 40 MG Tab.CR PO SCH (07:30)
[2019-04-22] MEDS: Nicotine 14 MG/24 Hr Patch TRDERM SCH (08:11)
[2019-04-22] MEDS ORDERED: Potassium Chloride 20 MEQ Tab.ER PO ONE ×2 (09:00→17:00)
--- NOTE | 2019-04-22 12:42 | PCM.PN ---
- General Info Date of Service: 04/22/19 Subjective Update: Ms. Jose has noted further improvement since yesterday with less abdominal pain, no nausea. Lipase level stable and remains mildly elevated. She has tolerated a clear liquid diet over the last 24 hours. Functional Status: Reports: Tolerating Diet - Review of Systems General: Denies: Fever, Weakness, Fatigue, Chills Pulmonary: Reports: No Symptoms Cardiovascular: Reports: No Symptoms Gastrointestinal: Reports: Abdominal Pain. Denies: Difficulty Swallowing, Hematochezia, Melena, Nausea, Vomiting - Patient Data Vitals - Most Recent: Last Vital Signs Temp 98.6 F 04/22/19 12:32 Pulse 86 04/22/19 12:32 Resp 16 04/22/19 12:32 BP 145/86 H 04/22/19 12:32 Pulse Ox 98 04/22/19 12:32 Weight - Most Recent: 259 lb I&O - Last 24 Hours: Intake & Output 04/21/19 04/22/19 04/22/19 22:59 06:59 14:59 Intake Total 400 550 Output Total 800 150 Balance -400 400 Lab Results Last 24 Hours: Laboratory Results - last 24 hr 04/22/19 Range/Units 05:48 Potassium 3.5 L (3.6-5.2) mmol/L Lipase 929 H (73-393) U/L Callum Results Last 24 Hours: Microbiology 04/19/19 20:30 Urine Culture - Final Urine, Bladder MIXED POSITIVE SAUL DAY 2 Med Orders - Current: Current Medications Promethazine HCl 12.5 mg/ (Sodium Chloride) 50.5 mls @ 200 mls/hr IV Q6H PRN PRN Reason: Nausea/Vomiting Last Admin: 04/20/19 08:20 Dose: 200 mls/hr Nicotine (Habitrol) 14 mg TRDERM DAILY [facility] Last Admin: 04/22/19 08:11 Dose: 14 mg Ondansetron HCl (Zofran) 4 mg IV Q4H PRN PRN Reason: Nausea/Vomiting Last Admin: 04/21/19 06:46 Dose: 4 mg Oxycodone HCl (Oxycodone) 5 mg PO Q4H PRN PRN Reason: Pain Last Admin: 04/22/19 12:39 Dose: 5 mg Pantoprazole Sodium (Protonix) 40 mg PO DAILY@0730 [facility] Last Admin: 04/22/19 07:30 Dose: 40 mg Discontinued Medications Hydromorphone HCl (Dilaudid) 1 mg IVPUSH ONETIME ONE Stop: 04/19/19 20:08 Last Admin: 04/19/19 20:28 Dose: 1 mg Hydromorphone HCl (Dilaudid) 1 mg IVPUSH ONETIME ONE Stop: 04/19/19 21:56 Last Admin: 04/19/19 22:02 Dose: 1 mg Hydromorphone HCl (Dilaudid) 0.5 mg IVPUSH ONETIME ONE Stop: 04/19/19 23:20 Last Admin: 04/19/19 23:33 Dose: 0.5 mg Hydromorphone HCl (Dilaudid) 1 mg IVPUSH Q2H PRN PRN Reason: Abdominal Pain Last Admin: 04/21/19 11:11 Dose: 1 mg Sodium Chloride (Normal Saline) 1,000 mls @ 999 mls[facility] Last Admin: 04/19/19 20:25 Dose: 999 mls/hr Sodium Chloride (Normal Saline) 1,000 mls @ 999 mls/hr [facility] Last Admin: 04/19/19 22:05 Dose: 999 mls/hr Sodium Chloride (Normal Saline) 1,000 mls @ 500 mls/hr [facility] Last Admin: 04/19/19 23:23 Dose: 500 mls/hr Levofloxacin/Dextrose 500 mg/ (Premix) 100 mls @ 100 mls/hr IV ONETIME ONE Stop: 04/20/19 00:19 Last Admin: 04/19/19 23:32 Dose: 100 mls/hr Sodium Chloride (Normal Saline) 1,000 mls @ 250 mls[facility]hr [facility] Last Admin: 04/20/19 03:02 Dose: 250 mls/hr Sodium Chloride (Normal Saline) 1,000 mls @ 100 mls/hr [facility] Last Admin: 04/21/19 03:10 Dose: 100 mls/hr Ketorolac Tromethamine (Toradol) 30 mg IVPUSH ONETIME ONE Stop: 04/19/19 20:56 Last Admin: 04/19/19 21:02 Dose: 30 mg Ketorolac Tromethamine (Toradol) 30 mg IVPUSH Q6H PRN PRN Reason: Pain (moderate 4-6) Last Admin: 04/21/19 08:26 Dose: 30 mg Ondansetron HCl (Zofran) 4 mg IVPUSH ONETIME ONE Stop: 04/19/19 20:07 Last Admin: 04/19/19 20:27 Dose: 4 mg Pantoprazole Sodium (Protonix Iv) 40 mg IV Q12H [facility] Last Admin: 04/21/19 13:30 Dose: Not Given Potassium Chloride (Klor-Con M20) 40 meq PO ONETIME ONE Stop: 04/21/19 10:01 Last Admin: 04/21/19 10:23 Dose: 40 meq Potassium Chloride (Klor-Con M20) 40 meq PO ONETIME ONE Stop: 04/21/19 17:01 Last Admin: 04/21/19 16:39 Dose: 40 meq Potassium Chloride (Klor-Con M20) 40 meq PO ONETIME ONE Stop: 04/22/19 09:01 Last Admin: 04/22/19 10:35 Dose: 40 meq Tamsulosin HCl (Flomax) 0.4 mg PO ONETIME ONE Stop: 04/19/19 21:56 Last Admin: 04/19/19 22:01 Dose: 0.4 mg - Exam General: Alert, Oriented, Cooperative, No Acute Distress Lungs: Clear to Auscultation, Normal Respiratory Effort Cardiovascular: Regular Rate, Regular Rhythm, No Murmurs GI/Abdominal Exam: Soft, No Organomegaly, Tender. No: Distended, Guarding, Rigid, Rebound Extremities: Non-Tender, No Pedal Edema - Problem List Review Problem List Initiated/Reviewed/Updated: Yes - My Orders Last 24 Hours: My Active Orders 04/21/19 13:15 oxyCODONE 5 mg PO Q4H PRN Convert IV to Saline Lock [OM.PC] Routine 04/22/19 07:30 Pantoprazole [ProTONIX] 40 mg PO DAILY@0730 04/22/19 17:00 Potassium Chloride [Klor-Con M20] 40 meq PO ONETIME ONE 04/22/19 Breakfast Regular Diet [DIET] 04/23/19 05:00 LIPASE [CHEM] Timed 04/23/19 05:11 POTASSIUM,K [CHEM] AM - Plan Plan:: ASSESSMENT AND PLAN PANCREATITIS-specific etiology not apparent, no obvious medication effect, significant alcohol use, or common duct stone. Further improvement since yesterday, she has tolerated a clear liquid diet. No nausea but does experience intermittent upper abdominal pain. -Regular diet -Saline lock IV -Reassess lipase level in a.m. LEFT URETERAL STONE-noted in the distal ureter on CT scan. Previous stones and hydronephrosis were on the right, status post stent placement. Currently experiencing no lower abdominal or pelvic pain MAINTENANCE ISSUES -DVT prophylaxis; not indicated -GI prophylaxis; not indicated -Zuniga catheter; not indicated -Nutrition; nothing by mouth -Nicotine dependence; not required CODE STATUS-FULL CODE ADMISSION STATUS-patient will be admitted to inpatient status, expect at least a 2 night hospital stay for evaluation and management of problems as outlined above. At the time of this admission I do not reasonably expected evaluation and management of this problem will require more than a 96 hour hospital stay. DISPOSITION-anticipate discharge to home after the hospital stay. PRIMARY CARE PROVIDER-Linda Garzon
[2019-04-22] MEDS: Ondansetron 4 MG/2 ML SDV IV PRN (17:05)
[2019-04-23] MEDS: oxyCODONE 5 MG Tab PO PRN (05:15)
[2019-04-23] MEDS: Pantoprazole 40 MG Tab.CR PO SCH (07:29)
[2019-04-23] MEDS: Nicotine 14 MG/24 Hr Patch TRDERM SCH (09:18)
--- NOTE | 2019-04-23 10:15 | PCM.DCSUM1 ---
Discharge Summary - Hospital Course Brief History: Ms. Jose is a 33-year-old woman who was admitted through the emergency department with abdominal pain and nausea secondary to pancreatitis. - Discharge Data Discharge Date: 04/23/19 Discharge Disposition: Home, Self-Care 01 Condition: Stable - Referral to Home Health Primary Care Physician: Janki Garzon PA-C - Discharge Diagnosis/Problem(s) (1) Pancreatitis SNOMED Code(s): 01476033 ICD Code: K85.90 - ACUTE PANCREATITIS WITHOUT NECROSIS OR INFECTION, UNSP Status: Acute Priority: High Current Visit: Yes Onset Date: ~04/13/19 Problem Details: lipase >1000, CT evidence of pancreatitis, will continue IV fluids, will have patient NPO for 24hrs, pain controlled with IV dilaudid, will start PPI, will repeat labs in 8 hours Qualifiers: Chronicity: acute Pancreatitis type: unspecified pancreatitis type Acute pancreatitis complication: no infection or necrosis Qualified Code(s): K85.90 - Acute pancreatitis without necrosis or infection, unspecified (2) Dehydration SNOMED Code(s): 69009020 ICD Code: E86.0 - DEHYDRATION Status: Acute Current Visit: Yes Onset Date: Unknown Problem Details: Will continue IV fluids (3) Ureteric stone SNOMED Code(s): 83529863 ICD Code: N20.1 - CALCULUS OF URETER Status: Acute Current Visit: Yes Onset Date: Unknown Problem Details: Will continue toradol, flomax, and IV fluids to facilitate passage of stone. - Patient Summary/Data Hospital Course: Ms. Jose is a 33yo female who presented to the ED with ULQ pain and Left flank pain. She says she was Dx with kidney stones recently, with stones on the Right side requiring a stent to be placed to further their passage. She also had a left sided stone that was asymptomatic. She says additionally she has had ULQ pain for about one week which has been worse after eating. She says she has never had the epigastric/ULQ pain in the past and isn't sure what it is. She says other than the OCPs and adderall she takes and the meds she has been taking for the kidney stones she has had no different medications recently. She also denies URQ pain. She says occasionally she has LLQ pain that started tonight. On admission she was kept nothing by mouth and given IV fluids for hydration. Medication was given as needed for pain and nausea. Lipase level improved throughout hospitalization but did not normalize. Pain level improved and by the time of discharge was only experiencing mild pain in the left upper quadrant. Ultrasound was obtained and showed only slight enlargement of the common duct, no obvious stones or evidence of underlying significant gallbladder disease. Etiology of pancreatitis not determined during hospitalization. There was no evidence of medication effect, obvious stone, and she adamantly denies significant alcohol intake. Follow-up appointment will be scheduled with her primary care provider within one week, lipase level should be obtained at the time of follow-up appointment. Activity will be as tolerated and she will resume her usual diet. - Patient Instructions Diet: Usual Diet as Tolerated, No Alcoholic Beverages Activity: As Tolerated Other/Special Instructions: FU appt primary care provider w/in 1 week. Lipase level at time of FU appt. - Discharge Plan *PRESCRIPTION DRUG MONITORING PROGRAM REVIEWED*: Not Applicable *COPY OF PRESCRIPTION DRUG MONITORING REPORT IN PATIENT LESIA: Not Applicable Home Medications: Home Meds Gabapentin [Neurontin] 300 mg PO TID 03/04/18 [History] Amphetamine/Dextroamphetamine [Adderall] 15 mg PO BID@,04/03/19 [History] Tamsulosin [Flomax] 0.4 mg PO PCBREAKFAST cap.er 04/06/19 [Rx] Potassium Chloride 20 meq PO BID 04/19/19 [History] valACYclovir [Valtrex] 1,000 mg PO BID 04/19/19 [History] Referrals: Janki Garzon PA-C [Primary Care Provider] - 05/04/19 3:30 pm (Please arrive 15 minutes early to register for your appointment.) - Discharge Summary/Plan Comment DC Time >30 min.: No - Patient Data Vitals - Most Recent: Last Vital Signs Temp 98.9 F 04/23/19 07:27 Pulse 84 04/23/19 07:27 Resp 14 04/23/19 07:27 BP 139/91 H 04/23/19 07:27 Pulse Ox 98 04/23/19 07:27 Weight - Most Recent: 259 lb I&O - Last 24 hours: Intake & Output 04/22/19 04/23/19 04/23/19 22:59 06:59 14:59 Intake Total 950 300 Balance 950 300 Lab Results - Last 24 hrs: Laboratory Results - last 24 hr 04/23/19 04/23/19 Range/Units 06:26 06:26 Potassium 3.7 (3.6-5.2) mmol/L Lipase 1051 H (73-393) U/L DINESH Results - Last 24 hrs: Microbiology 04/19/19 20:30 Urine Culture - Final Urine, Bladder MIXED POSITIVE SAUL DAY 2 Med Orders - Current: Current Medications Promethazine HCl 12.5 mg/ (Sodium Chloride) 50.5 mls @ 200 mls/hr IV Q6H PRN PRN Reason: Nausea/Vomiting Last Admin: 04/20/19 08:20 Dose: 200 mls/hr Nicotine (Habitrol) 14 mg TRDERM DAILY [facility] Last Admin: 04/23/19 09:18 Dose: 14 mg Ondansetron HCl (Zofran) 4 mg IV Q4H PRN PRN Reason: Nausea/Vomiting Last Admin: 04/22/19 17:05 Dose: 4 mg Oxycodone HCl (Oxycodone) 5 mg PO Q4H PRN PRN Reason: Pain Last Admin: 04/23/19 05:15 Dose: 5 mg Pantoprazole Sodium (Protonix) 40 mg PO DAILY@0730 [facility] Last Admin: 04/23/19 07:29 Dose: 40 mg Discontinued Medications Hydromorphone HCl (Dilaudid) 1 mg IVPUSH ONETIME ONE Stop: 04/19/19 20:08 Last Admin: 04/19/19 20:28 Dose: 1 mg Hydromorphone HCl (Dilaudid) 1 mg IVPUSH ONETIME ONE Stop: 04/19/19 21:56 Last Admin: 04/19/19 22:02 Dose: 1 mg Hydromorphone HCl (Dilaudid) 0.5 mg IVPUSH ONETIME ONE Stop: 04/19/19 23:20 Last Admin: 04/19/19 23:33 Dose: 0.5 mg Hydromorphone HCl (Dilaudid) 1 mg IVPUSH Q2H PRN PRN Reason: Abdominal Pain Last Admin: 04/21/19 11:11 Dose: 1 mg Sodium Chloride (Normal Saline) 1,000 mls @ 999 mls/hr IV ASDIRECTED [facility] Last Admin: 04/19/19 20:25 Dose: 999 mls/hr Sodium Chloride (Normal Saline) 1,000 mls @ 999 mls/hr IV ASDIRECTED [facility] Last Admin: 04/19/19 22:05 Dose: 999 mls/hr Sodium Chloride (Normal Saline) 1,000 mls @ 500 mls/hr IV ASDIRECTED [facility] Last Admin: 04/19/19 23:23 Dose: 500 mls/hr Levofloxacin/Dextrose 500 mg/ (Premix) 100 mls @ 100 mls/hr IV ONETIME ONE Stop: 04/20/19 00:19 Last Admin: 04/19/19 23:32 Dose: 100 mls/hr Sodium Chloride (Normal Saline) 1,000 mls @ 250 mls/hr IV ASDIRECTED [facility] Last Admin: 04/20/19 03:02 Dose: 250 mls/hr Sodium Chloride (Normal Saline) 1,000 mls @ 100 mls/hr IV ASDIRECTED [facility] Last Admin: 04/21/19 03:10 Dose: 100 mls/hr Ketorolac Tromethamine (Toradol) 30 mg IVPUSH ONETIME ONE Stop: 04/19/19 20:56 Last Admin: 04/19/19 21:02 Dose: 30 mg Ketorolac Tromethamine (Toradol) 30 mg IVPUSH Q6H PRN PRN Reason: Pain (moderate 4-6) Last Admin: 04/21/19 08:26 Dose: 30 mg Ondansetron HCl (Zofran) 4 mg IVPUSH ONETIME ONE Stop: 04/19/19 20:07 Last Admin: 04/19/19 20:27 Dose: 4 mg Pantoprazole Sodium (Protonix Iv) 40 mg IV Q12H [facility] Last Admin: 04/21/19 13:30 Dose: Not Given Potassium Chloride (Klor-Con M20) 40 meq PO ONETIME ONE Stop: 04/21/19 10:01 Last Admin: 04/21/19 10:23 Dose: 40 meq Potassium Chloride (Klor-Con M20) 40 meq PO ONETIME ONE Stop: 04/21/19 17:01 Last Admin: 04/21/19 16:39 Dose: 40 meq Potassium Chloride (Klor-Con M20) 40 meq PO ONETIME ONE Stop: 04/22/19 09:01 Last Admin: 04/22/19 10:35 Dose: 40 meq Potassium Chloride (Klor-Con M20) 40 meq PO ONETIME ONE Stop: 04/22/19 17:01 Last Admin: 04/22/19 16:47 Dose: 40 meq Tamsulosin HCl (Flomax) 0.4 mg PO ONETIME ONE Stop: 04/19/19 21:56 Last Admin: 04/19/19 22:01 Dose: 0.4 mg - Exam General: Reports: Alert, Oriented, Cooperative, Mild Distress Lungs: Reports: Clear to Auscultation, Normal Respiratory Effort Cardiovascular: Reports: Regular Rate, Regular Rhythm, No Murmurs GI/Abdominal Exam: Soft, No Organomegaly, Tender. No: Distended, Guarding, Rigid, Rebound
== END 2019-04-23 10:35 | disposition home or self-care (01) | DRG 439 ==
LOC: JP.ED 19:17 → JP.MS 04-20 00:17
PROVIDERS: ADMIT Family Medicine; ATTEND Hospitalist
DX: K85.90 Acute pancreatitis without necrosis or infection, unspecified (principal); N30.01 Acute cystitis with hematuria; N20.1 Calculus of ureter; F41.9 Anxiety disorder, unspecified; E86.0 Dehydration; F90.9 Attention-deficit hyperactivity disorder, unspecified type; F17.210 Nicotine dependence, cigarettes, uncomplicated; Z96.0 Presence of urogenital implants; Z79.899 Other long term (current) drug therapy
CPT/HCPCS: 36415; 74176; 76700; 80053; 80061; 81001; 81025; 82150; 83690; 83735; 84132; 84478; 85025; 87086; 96361; 96365; 96375; 96376; 99285-25; A9270-GY; C9113; J1170; J1885; J1956; J2405; J2550; J7030; J7050

== ENCOUNTER 2020-07-30 21:55 | Emergency (ER) | payer MEDICAID ==
[2020-07-30] MEDS ORDERED: Bupivacaine 0.5%/EPINEPHrine 1:200,000 1.8 ML Cartridge INJECT ONE (22:33)
--- NOTE | 2020-07-30 22:45 | EDM.PDOC ---
ED HPI GENERAL MEDICAL PROBLEM - General Chief Complaint: ENT Problem Stated Complaint: TOOTH PAIN/RT SIDE Time Seen by Provider: 07/30/20 22:20 Source of Information: Reports: Patient, Family History Limitations: Reports: No Limitations - History of Present Illness INITIAL COMMENTS - FREE TEXT/NARRATIVE: 34-year-old female with right-sided dental pain for the past week. It is localized in one of the posterior right mandibular molars. No fevers or chills, no significant swelling but it is very painful tonight. Onset: Gradual Duration: Day(s): (7 days) Location: Reports: Other (Right jaw) Improves with: Reports: None Associated Symptoms: Reports: Other (Sensation of swelling along the right jaw) - Related Data Allergies Allergy/AdvReac Type Severity Reaction Status Date / Time No Known Allergies Allergy Verified 07/30/20 22:06 Home Meds: Home Meds Gabapentin [Neurontin] 300 mg PO TID 03/04/18 [History] Amphetamine/Dextroamphetamine [Adderall] 15 mg PO BID@,04/03/19 [History] Past Medical History HEENT History: Reports: Other (See Below) Other HEENT History: Dental Carries/Broken teeth Genitourinary History: Reports: Renal Calculus 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: , 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 Psychiatric History: Reports: ADHD, Anxiety - Past Surgical History Head Surgeries/Procedures: Reports: None HEENT Surgical History: Reports: Oral Surgery Female Surgical History: Reports: Kidney stone extraction Dermatological Surgical History: Reports: None Social & Family History - Family History Family Medical History: Unobtainable - Tobacco Use Tobacco Use Status *Q: Current Every Day Tobacco User Years of Tobacco use: 20 Packs/Tins Daily: 1 - Caffeine Use Caffeine Use: Reports: Coffee ED ROS ENT - Review of Systems Review Of Systems: See Below Constitutional: Denies: Fever, Decreased Appetite HEENT: Reports: Dental Pain Respiratory: Denies: Shortness of Breath Cardiovascular: Denies: Chest Pain GI/Abdominal: Denies: Nausea, Vomiting Neurological: Denies: Headache ED EXAM, ENT - Physical Exam Exam: See Below Exam Limited By: No Limitations General Appearance: Alert, Mild Distress (Very uncomfortable, tearful) Mouth/Throat: Dental Tenderness (Mild to moderate tenderness to percussion of the molars on the right mandible but no specific pain isolated to one tooth. No objective swelling, erythema of the mucosa or jaw) Neck: No: Lymphadenopathy (R), Lymphadenopathy (L) Respiratory/Chest: No Respiratory Distress, Lungs Clear Course - Vital Signs Last Recorded V/S: Last Vital Signs Temp 96.8 F L 07/30/20 22:15 Pulse 113 H 07/30/20 22:15 Resp 18 07/30/20 22:15 BP 158/92 H 07/30/20 22:15 Pulse Ox - Orders/Labs/Meds Meds: Medications Discontinued Medications Generic Name Dose Route Start Last Admin Trade Name Teofilo PRN Reason Stop Dose Admin Bupivacaine HCl/Epinephrine Bitart 1.8 ml 07/30/20 22:33 07/30/20 22:39 Marcaine 0.5%/Epinephrine 1:200,000 INJECT 07/30/20 22:34 1.8 ml ONETIME ONE Administration - Re-Assessments/Exams Free Text/Narrative Re-Assessment/Exam: 07/30/20 23:12 An inferior alveolar nerve block was obtained with Sensorcaine which gave her good relief. She was put on 300 mg of clindamycin every 6 hours and will call her dentist on Saturday. Departure - Departure Time of Disposition: 22:58 Disposition: Home, Self-Care 01 Clinical Impression: Dental abscess - Discharge Information Instructions: Dental Abscess, [id number] Referrals: Janki Garzon PA-C [Primary Care Provider] - Forms: ED Department Discharge Care Plan Goals: Take antibiotic as directed, use ibuprofen and tylenol for pain and call the dentist Saturday. Sepsis Event Note (ED) - Evaluation Sepsis Screening Result: No Definite Risk - Focused Exam Vital Signs: Vital Signs Temp Pulse Resp BP 07/30/20 22:15 96.8 F L 113 H 18 158/92 H
== END 2020-07-30 22:58 | disposition home or self-care (01) ==
LOC: JP.ED 21:55
DX: K04.7 Periapical abscess without sinus (principal); Z72.0 Tobacco use
CPT/HCPCS: 64400; 99282; J3490; 99283

== ENCOUNTER 2020-09-24 11:35 | Emergency (ER) | payer MEDICAID ==
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
--- NOTE | 2020-09-26 09:29 | CR ---
Elbow Min 3V Rt CLINICAL HISTORY: Pain, trauma FINDINGS: No acute fracture or dislocation is noted. The fat pads are normal Impression: Negative .
== END 2020-09-24 12:48 | disposition home or self-care (01) ==
LOC: JP.ED 11:35
DX: S50.11XA Contusion of right forearm, initial encounter (principal); Z72.0 Tobacco use; W21.11XA Struck by baseball bat, initial encounter
CPT/HCPCS: 73080-26-RT; 73080-RT; 99283